=== PATIENT | female | born 1970 | race Caucasian/White ===

== ENCOUNTER 2017-07-23 18:00 | Inpatient (IN) | payer MEDICAID ==
[2017-07-23] MEDS ORDERED: Sodium Chloride 0.9% 1,000 ML IV ONE ×2 (18:27→19:53)
[2017-07-23 19:20] LABS: BASO # 0.3 K/uL (0.0-0.2); BASO % 2.2 % (0.0-2.0); EOS # 0.4 K/uL (0.0-0.7); EOS % 2.8 % (0.0-4.0); HEMOGLOBIN 14.1 g/dL (11.0-16.0); LYMPH # 1.8 K/uL (1.0-4.3); LYMPH % 11.6 % (20.0-40.0); MEAN CELL VOLUME 95.5 fL (81.0-99.0); MEAN CORPUSCULAR HGB CONC 34.5 g/dL (33.0-37.0); MEAN PLATELET VOLUME 10.1 fL (7.2-11.7); MONO # 0.8 K/uL (0.0-0.8); NEUT # 12.5 K/uL (1.8-7.0); NEUT % 78.4 % (50.0-75.0); RBC 4.27 Mil/uL (3.80-5.20); RED CELL DISTRIBUTION WIDTH 12.7 % (11.5-14.5); WHITE BLOOD COUNT 15.9 K/uL (4.8-10.8)
[2017-07-23 19:32] LABS: ACETAMINOPHEN < 10.0 ug/mL (10.0-30.0); SALICYLATE < 1.0 mg/dL 1
[2017-07-23 19:49] LABS: ALB/GLOB RATIO 1.1 (1.0-2.1); ALT/SGPT 25 U/L (9-52); AST/SGOT 17 U/L (14-36); BLOOD UREA NITROGEN 22 mg/dL (7-17); CALCIUM 9.5 mg/dl (8.6-10.4); GFR AFRICAN-AMERICAN > 60; GFR NON-AFRICAN AMERICAN 53; MAGNESIUM 1.9 mg/dL (1.6-2.3)
[2017-07-23] MEDS ORDERED: Sodium Chloride 0.9% 1,000 ML ONE (20:04)
[2017-07-23 20:11] LABS: HCG,QUALITATIVE URINE NEGATIVE (NEGATIVE)
[2017-07-23 20:16] LABS: URINE BACTERIA RARE (<OCC); URINE BILIRUBIN NEGATIVE (NEGATIVE); URINE BLOOD 1+ (NEGATIVE); URINE CLARITY Clear (Clear); URINE COLOR Straw (YELLOW); URINE GLUCOSE (UA) 3+ mg/dL (Normal); URINE LEUKOCYTE ESTERASE NEG Leu/uL (Negative); URINE NITRATE NEGATIVE (NEGATIVE); URINE PROTEIN 2+ mg/dL (NEGATIVE); URINE UROBILINOGEN NORMAL mg/dL (0.2-1.0)
[2017-07-23 20:21] LABS: SQUAMOUS EPITHIAL 1 /hpf (0-5)
[2017-07-23 20:22] LABS: BENZODIAZEPINES, UR NEGATIVE (NEGATIVE); OPIATES, UR NEGATIVE (NEGATIVE); PHENCYCLIDINE, UR NEGATIVE (NEGATIVE)
[2017-07-23 20:27] LABS: BARBITURATES, UR POSITIVE (NEGATIVE)
[2017-07-23] MEDS ORDERED: Magnesium Citrate Oral SOL (300 ml) PO PRN (21:25)
[2017-07-23] MEDS ORDERED: Multivitamin (MVI) 10 ML, Thiamine 100 MG, Folic Acid 1 MG in Sodium Chloride 0.9% 1,00... IV ONE (21:27)
--- NOTE | 2017-07-23 21:30 | C.PDOC ---
Time Seen by Provider: 07/23/17 18:10 Chief Complaint (Nursing): Psychiatric Evaluation History Per: Patient, EMS History/Exam Limitations: clinical condition Onset/Duration Of Symptoms: Hrs (since 2 pm today) Current Symptoms Are (Timing): Still Present Suicide/Self Injury Attempted (Context): Ingestion Ingestion Of Substance: 90 tabs on 32.4mg Phenobarbital Modifying Factor(s): Alcohol, Marijuana Severity: Moderate Associated Symptoms: Depression, Suicidal Thoughts Additional History Per: Prior Records Past Medical History Reviewed: Historical Data, Nursing Documentation, Vital Signs Vital Signs: Last Vital Signs Temp 98 F 07/23/17 18:07 Pulse 99 H 07/23/17 19:30 Resp 16 07/23/17 19:30 BP 143/83 07/23/17 19:30 Pulse Ox 97 07/23/17 19:30 - Medical History PMH: Bipolar Disorder, Depression, Diabetes, HTN, Seizures Family History: States: Unknown Family Hx - Social History Hx Alcohol Use: Yes Hx Substance Use: Yes - Immunization History Hx Tetanus Toxoid Vaccination: No Hx Influenza Vaccination: No Hx Pneumococcal Vaccination: No Review Of Systems Review Of Systems: ROS cannot be obtained secondary to pt's inabilty to answer questions. Physical Exam - Physical Exam Appears: Other (Drowsy. Tearfull.) Skin: Normal Color, Warm, Dry Head: Atraumatic, Normacephalic Eye(s): bilateral: PERRL Neck: Normal ROM, Supple Cardiovascular: Rhythm Regular Respiratory: Normal Breath Sounds, No Accessory Muscle Use Gastrointestinal/Abdominal: Soft, No Tenderness Extremity: Normal ROM Neurological/Psych: Oriented x3, Eyes Open With Command, Slow To Respond With Command, Other (Moving all extremities) Gait: Unable To Assess ED Course And Treatment - Laboratory Results Result Diagrams: 07/23/17 19:13 07/23/17 19:15 Lab Interpretation: Abnormal Interpretation Of Abnormal: Hyperglycemia. ECG: Interpreted By Me, Viewed By Me ECG Rhythm: Sinus Tachycardia, Nonspecific Changes Rate From EC O2 Sat by Pulse Oximetry: 97 Pulse Ox Interpretation: Normal - Radiology CXR: Interpreted by Me, Viewed By Me CXR Interpretation: Yes: No Acute Disease Progress Note: Pt d/w Eliezer at [facility]. They recommended supportive care and observation. - Physician Consult Information Physician Contacted: Denzel Roth (ICU) Outcome Of Conversation: She accepted pt to ICU. Progress - Interventions Interventions:: Observation, Intravenous fluid - Data Reviewed Data Reviewed: Lab, Diagnostic imaging, EKG, Old records - Patient Status Patient status: Unchanged - Critical Care Citical Care: Excluding Proc Time Critical Care Time: 60 minutes - Continuity of Care Discussed patient case with:: Patient, ED Nurse, On-call PMD-pt unassigned Discussed pt. case with insolvency consultant/specialty: Pulmonary/Crit. Care - Patient Plan Patient Plan: Admission, ICU Disposition Discussed With : Tico Oconnell Comment: He accepted pt on his service. Doctor Will See Patient In The: Hospital Counseled Patient/Family Regarding: Studies Performed, Diagnosis - Disposition Disposition: HOSPITALIZED Disposition Time: 21:32 Condition: GUARDED - Clinical Impression Clinical Impression: Intentional phenobarbital overdose
[2017-07-23] MEDS ORDERED: (Novolin R) Insulin Human Regular 100 units/ml vial SC SCH (22:00)
--- NOTE | 2017-07-23 22:25 | CP.PCM.CON ---
History of Present Illness - History of Present Illness History of Present Illness: 47 y/o female with Bipolar Disorder, Depression, Diabetes, HTN, Seizures brought to ER after ingestion of 90 tabs of 32.4mg Phenobarbital.She also took ( s): Alcohol, Marijuana.pt drowsy but arousable.Poison control called by ER and recommended observation. patient very drowsy unable to get history,ROS Past Patient History - Past Social History Smoking Status: Heavy Smoker > 10 Cigarettes Daily - CARDIAC Hx Hypertension: Yes - NEUROLOGICAL Hx Seizures: Yes - ENDOCRINE/METABOLIC Hx Endocrine Disorders: Yes Hx Diabetes Mellitus Type 1: Yes - PSYCHIATRIC Hx Bipolar Disorder: Yes Hx Depression: Yes Hx Substance Use: Yes - SURGICAL HISTORY Hx Surgeries: Yes (SEE COMMENT) Other/Comment: VULVAR ABSCESS SX 03/02/16,. BURN GRAFTS - ANESTHESIA Hx Anesthesia: Yes Hx Anesthesia Reactions: No Meds Allergies/Adverse Reactions: Allergies Allergy/AdvReac Type Severity Reaction Status Date / Time latex AdvReac RASH Verified 07/23/17 18:17 - Medications Medications: Current Medications Docusate Sodium (Colace) 100 mg PO BID DENNIS Enoxaparin Sodium (Lovenox) 40 mg SC DAILY DENNIS Multivitamins/Vitamin C 10 ml/Thiamine HCl 100 mg/ Folic Acid 1 mg/ Sodium Chloride 1,011.2 mls @ 100 mls/hr IV .[id number] ONE Stop: 07/24/17 07:33 Insulin Human Regular (Novolin R) 0 unit SC ACHS DENNIS PRN Reason: Protocol Magnesium Citrate (Citrate Of Mag) 300 ml PO ONCE PRN PRN Reason: Constipation Physical Exam - Constitutional Appears: No Acute Distress Additional comments: very drowsy but arousable - Head Exam Head Exam: ATRAUMATIC, NORMAL INSPECTION, NORMOCEPHALIC - Eye Exam Eye Exam: Normal appearance, PERRL. absent: Conjunctival injection, Periorbital swelling - ENT Exam ENT Exam: Mucous Membranes Moist - Neck Exam Neck exam: Positive for: Normal Inspection - Respiratory Exam Respiratory Exam: Clear to Auscultation Bilateral, NORMAL BREATHING PATTERN - Cardiovascular Exam Cardiovascular Exam: REGULAR RHYTHM - GI/Abdominal Exam GI & Abdominal Exam: Normal Bowel Sounds, Soft. absent: Tenderness - Extremities Exam Extremities exam: Positive for: normal inspection. Negative for: pedal edema, tenderness - Neurological Exam Neurological exam: Altered - Skin Skin Exam: Normal Color, Warm Results - Vital Signs Recent Vital Signs: Last Vital Signs Temp 98 F 07/23/17 18:07 Pulse 99 H 07/23/17 19:30 Resp 16 07/23/17 19:30 BP 143/83 07/23/17 19:30 Pulse Ox 97 07/23/17 21:33 - Labs Result Diagrams: 07/23/17 19:13 07/23/17 19:15 Labs: Laboratory Results - last 24 hr 07/23/17 07/23/17 07/23/17 18:14 19:13 19:15 WBC 15.9 H RBC 4.27 Hgb 14.1 Hct 40.8 MCV 95.5 MCH 33.0 H MCHC 34.5 RDW 12.7 Plt Count 249 MPV 10.1 Neut % (Auto) 78.4 H Lymph % (Auto) 11.6 L [place] % (Auto) 5.0 Eos % (Auto) 2.8 Baso % (Auto) 2.2 H Neut # (Auto) 12.5 H Lymph # (Auto) 1.8 [place] # (Auto) 0.8 Eos # (Auto) 0.4 Baso # (Auto) 0.3 H Sodium 132 Potassium 3.9 Chloride 94 L Carbon Dioxide 25 Anion Gap 17 BUN 22 H Creatinine 1.1 Est GFR ( Amer) > 60 Est GFR (Non-Af Amer) 53 POC Glucose (mg/dL) 405 H* Random Glucose 422 H* D Calcium 9.5 Magnesium 1.9 Total Bilirubin 0.4 AST 17 ALT 25 Alkaline Phosphatase 87 Total Protein 7.8 Albumin 4.0 Globulin 3.8 Albumin/Globulin Ratio 1.1 Urine Color Urine Clarity Urine pH Ur Specific [place] Urine Protein Urine Glucose (UA) Urine Ketones Urine Blood Urine Nitrate Urine Bilirubin Urine Urobilinogen Ur Leukocyte Esterase Urine RBC (Auto) Ur Squamous Epith Cells Urine Bacteria Urine HCG, Qual Salicylates Urine Opiates Screen Urine Methadone Screen Acetaminophen Ur Barbiturates Screen Ur Phencyclidine Scrn Ur Amphetamines Screen U Benzodiazepines Scrn U Oth Cocaine Metabols U Cannabinoids Screen Alcohol, Quantitative 83 H 07/23/17 07/23/17 07/23/17 19:15 20:00 20:00 WBC RBC Hgb Hct MCV MCH MCHC RDW Plt Count MPV Neut % (Auto) Lymph % (Auto) [place] % (Auto) Eos % (Auto) Baso % (Auto) Neut # (Auto) Lymph # (Auto) [place] # (Auto) Eos # (Auto) Baso # (Auto) Sodium Potassium Chloride Carbon Dioxide Anion Gap BUN Creatinine Est GFR ( Amer) Est GFR (Non-Af Amer) POC Glucose (mg/dL) Random Glucose Calcium Magnesium Total Bilirubin AST ALT Alkaline Phosphatase Total Protein Albumin Globulin Albumin/Globulin Ratio Urine Color Straw Urine Clarity Clear Urine pH 6.0 Ur Specific [place] 1.010 Urine Protein 2+ H Urine Glucose (UA) 3+ H Urine Ketones Negative Urine Blood 1+ H Urine Nitrate Negative Urine Bilirubin Negative Urine Urobilinogen Normal Ur Leukocyte Esterase Neg Urine RBC (Auto) 1 Ur Squamous Epith Cells 1 Urine Bacteria Rare Urine HCG, Qual Negative Salicylates < 1.0 Urine Opiates Screen Negative Urine Methadone Screen Negative Acetaminophen < 10.0 L Ur Barbiturates Screen Positive H Ur Phencyclidine Scrn Negative Ur Amphetamines Screen Negative U Benzodiazepines Scrn Negative U Oth Cocaine Metabols Negative U Cannabinoids Screen Positive H Alcohol, Quantitative 07/23/17 22:23 WBC RBC Hgb Hct MCV MCH MCHC RDW Plt Count MPV Neut % (Auto) Lymph % (Auto) [place] % (Auto) Eos % (Auto) Baso % (Auto) Neut # (Auto) Lymph # (Auto) [place] # (Auto) Eos # (Auto) Baso # (Auto) Sodium Potassium Chloride Carbon Dioxide Anion Gap BUN Creatinine Est GFR ( Amer) Est GFR (Non-Af Amer) POC Glucose (mg/dL) 230 H Random Glucose Calcium Magnesium Total Bilirubin AST ALT Alkaline Phosphatase Total Protein Albumin Globulin Albumin/Globulin Ratio Urine Color Urine Clarity Urine pH Ur Specific [place] Urine Protein Urine Glucose (UA) Urine Ketones Urine Blood Urine Nitrate Urine Bilirubin Urine Urobilinogen Ur Leukocyte Esterase Urine RBC (Auto) Ur Squamous Epith Cells Urine Bacteria Urine HCG, Qual Salicylates Urine Opiates Screen Urine Methadone Screen Acetaminophen Ur Barbiturates Screen Ur Phencyclidine Scrn Ur Amphetamines Screen U Benzodiazepines Scrn U Oth Cocaine Metabols U Cannabinoids Screen Alcohol, Quantitative - EKG Data EKG Interpreted by: Myself EKG shows normal: Sinus rhythm Rate: Tachycardia Assessment & Plan - Assessment and Plan (Free Text) Assessment: 1.Phenobarbiturate overdose-Patient drowsy but arousable close observation as recommended by Poison contril 2.DM with elevated glucose IV fluids and insulin coverake 3.H/O HTN f/u BP 4.Bipolar disorder Psych evaluation 5.Hematuria-rpt UA
[2017-07-23] MEDS ORDERED: (Novolin R) Insulin Human Regular 100 units/ml vial ONE (22:44)
[2017-07-23 22:45] LABS: ABG ALLEN TEST PO; ARTERIAL BLOOD GAS HCO3 23.2 mmol/L (21-28); ARTERIAL BLOOD GAS HEMOGLOBIN 12.3 g/dL (11.7-17.4); ARTERIAL BLOOD GAS O2 SAT 98.2 % (95-98); ARTERIAL BLOOD GAS PCO2 40 mm/Hg (35-45); ARTERIAL BLOOD GAS PH 7.37 (7.35-7.45); ARTERIAL BLOOD GAS PO2 86 mm/Hg (80-100); ARTERIAL BLOOD GAS TCO2 24.3 mmol/L (22-28)
[2017-07-23] MEDS: Sodium Chloride 0.45% 1,000 ML IV SCH (23:04)
--- NOTE | 2017-07-23 23:56 | CP.PCM.HP ---
History of Present Illness - History of Present Illness History of Present Illness: CC: Drug over dose, suicidal attempt History of Present Illness: 47 y/o female with Bipolar Disorder, Depression, Diabetes, HTN, Seizures complaint with diet and medications brought to ER after ingestion of 90 tabs of 32.4mg Phenobarbital in attempt to commit suiciide, .She also took Alcohol, Marijuana.pt drowsy but arousable.Poison control called by ER and recommended observation. patient very drowsy unable to get history,ROS Present on Admission - Present on Admission Any Indicators Present on Admission: Yes Review of Systems - Review of Systems Systems not reviewed;Unavailable: Acuity of Condition - Constitutional Constitutional: Fatigue, Lethargy - EENT Nose/Mouth/Throat: absent: As Per HPI, Epistaxis, Nasal Congestion, Nasal Discharge, Nasal Obstruction, Nasal Trauma, Nose Pain, Post Nasal Drip, Sinus Pain, Sinus Pressure, Bleeding Gums, Change in Voice, Dental Pain, Dry Mouth, Dysphagia, Halitosis, Hoarsness, Lip Swelling, Mouth Lesions, Mouth Pain, Odynophagia, Sore Throat, Throat Swelling, Tongue Swelling, Facial Pain, Neck Pain, Neck Mass, Other - Cardiovascular Cardiovascular: absent: As Per HPI, Acrocyanosis, Chest Pain, Chest Pain at Rest , Chest Pain with Activity, Claudication, Diaphoresis, Dyspnea, Dyspnea on Exertion, Edema, Irregular Heart Rhythm, Pain Radiating to Arm/Neck/Jaw, Leg Edema, Leg Ulcers, Lightheadedness, Orthopnea, Palpitations, Paroxysmal Nocturnal Dyspnea, Pedal Edema, Radiating Pain, Rapid Heart Rate, Slow Heart Rate, Syncope, Other - Respiratory Respiratory: absent: As Per HPI, Cough, Dyspnea, Hemoptysis, Dyspnea on Exertion , Wheezing, Snoring, Stridor, Pain on Inspiration, Chest Congestion, Excessive Mucous Production, Change in Mucous Color, Pain with Coughing, Other - Gastrointestinal Gastrointestinal: absent: As Per HPI, Abdominal Pain, Belching, Bloating, Change in Bowel Habits, Change in Stool Character, Coffee Ground Emesis, Constipation, Cramping, Diarrhea, Dyspepsia, Dysphagia, Early Satiety, Excessive Flatus, Fecal Incontinence, Heartburn, Hematemesis, Hematochezia, Loose Stools, Melena, Nausea, Odynophagia, Temesmus, Vomiting, Other - Genitourinary Genitourinary: absent: As Per HPI, Change in Urinary Stream, Difficulty Urinating, Dysuria, Flank Pain, Hematuria, Pyuria, Nocturia, Urinary Incontinence, Urinary Frequency, Urinary Hesitance, Urinary Urgency, Voiding Freq/Small Amts, Freq UTI, Hx Renal/Bladder Calculi, Hx /Renal Surgery, Bladder Distension, Other - Neurological Neurological: absent: As Per HPI, Abnormal Gait, Abnormal Hearing, Abnormal Movements, Abnormal Speech, Behavioral Changes, Burning Sensations, Confusion, Convulsions, Disequilibrium, Dizziness, Numbness, Focal Weakness, Frequent Falls , Headaches, Lack of Coordination, Loss of Vision, Memory Loss, Paresthesias, Radicular Pain, Restless Legs, Sensory Deficit, Syncope, Tingling, Tremor, Vertigo, Weakness, Other Visual Disturbances, Other - Psychiatric Psychiatric: Anxiety, Behavioral Changes, Depression, Suicidal Ideation - Endocrine Endocrine: absent: As Per HPI, Change in Body Appearance, Change in Libido, Cold Intolorance, Deepening of Voice, Excessive Sweating, Fatigue, Flushing, Heat Intolorance, Increase in Ring/Shoe/Hat Size, Palpitations, Polydipsia, Polyphagia, Polyuria, Other Past Patient History - Past Social History Smoking Status: Heavy Smoker > 10 Cigarettes Daily - CARDIAC Hx Hypertension: Yes - NEUROLOGICAL Hx Seizures: Yes - ENDOCRINE/METABOLIC Hx Endocrine Disorders: Yes Hx Diabetes Mellitus Type 1: Yes - PSYCHIATRIC Hx Bipolar Disorder: Yes Hx Depression: Yes Hx Substance Use: Yes - SURGICAL HISTORY Hx Surgeries: Yes (SEE COMMENT) Other/Comment: VULVAR ABSCESS SX 03/02/16,. BURN GRAFTS - ANESTHESIA Hx Anesthesia: Yes Hx Anesthesia Reactions: No Meds Allergies/Adverse Reactions: Allergies Allergy/AdvReac Type Severity Reaction Status Date / Time latex AdvReac RASH Verified 07/23/17 18:17 Physical Exam - Constitutional Appears: No Acute Distress - Head Exam Head Exam: ATRAUMATIC, NORMAL INSPECTION, NORMOCEPHALIC - Eye Exam Eye Exam: EOMI, Normal appearance, PERRL Pupil Exam: NORMAL ACCOMODATION, PERRL - Respiratory Exam Respiratory Exam: Clear to Auscultation Bilateral, NORMAL BREATHING PATTERN - Cardiovascular Exam Cardiovascular Exam: REGULAR RHYTHM - GI/Abdominal Exam GI & Abdominal Exam: Normal Bowel Sounds, Soft. absent: Tenderness Results - Vital Signs Recent Vital Signs: Last Vital Signs Temp 98 F 07/23/17 18:07 Pulse 81 07/23/17 22:44 Resp 20 07/23/17 22:44 BP 134/78 07/23/17 22:44 Pulse Ox 99 07/23/17 23:26 - Labs Result Diagrams: 07/24/17 06:24 07/24/17 06:23 Labs: Laboratory Results - last 24 hr 07/23/17 07/23/17 07/23/17 18:14 19:13 19:15 WBC 15.9 H RBC 4.27 Hgb 14.1 Hct 40.8 MCV 95.5 MCH 33.0 H MCHC 34.5 RDW 12.7 Plt Count 249 MPV 10.1 Neut % (Auto) 78.4 H Lymph % (Auto) 11.6 L [place] % (Auto) 5.0 Eos % (Auto) 2.8 Baso % (Auto) 2.2 H Neut # (Auto) 12.5 H Lymph # (Auto) 1.8 [place] # (Auto) 0.8 Eos # (Auto) 0.4 Baso # (Auto) 0.3 H Puncture Site pCO2 pO2 HCO3 ABG pH ABG Total CO2 ABG O2 Saturation ABG Base Excess ABG Hemoglobin ABG Carboxyhemoglobin POC ABG HHb (Measured) ABG Methemoglobin Isaías Test A-a O2 Difference Respiratory Index Hgb O2 Saturation FiO2 Sodium 132 Potassium 3.9 Chloride 94 L Carbon Dioxide 25 Anion Gap 17 BUN 22 H Creatinine 1.1 Est GFR ( Amer) > 60 Est GFR (Non-Af Amer) 53 POC Glucose (mg/dL) 405 H* Random Glucose 422 H* D Calcium 9.5 Magnesium 1.9 Total Bilirubin 0.4 AST 17 ALT 25 Alkaline Phosphatase 87 Total Protein 7.8 Albumin 4.0 Globulin 3.8 Albumin/Globulin Ratio 1.1 Urine Color Urine Clarity Urine pH Ur Specific [place] Urine Protein Urine Glucose (UA) Urine Ketones Urine Blood Urine Nitrate Urine Bilirubin Urine Urobilinogen Ur Leukocyte Esterase Urine RBC (Auto) Ur Squamous Epith Cells Urine Bacteria Urine HCG, Qual Salicylates Urine Opiates Screen Urine Methadone Screen Acetaminophen Ur Barbiturates Screen Ur Phencyclidine Scrn Ur Amphetamines Screen U Benzodiazepines Scrn U Oth Cocaine Metabols U Cannabinoids Screen Alcohol, Quantitative 83 H 07/23/17 07/23/17 07/23/17 19:15 20:00 20:00 WBC RBC Hgb Hct MCV MCH MCHC RDW Plt Count MPV Neut % (Auto) Lymph % (Auto) [place] % (Auto) Eos % (Auto) Baso % (Auto) Neut # (Auto) Lymph # (Auto) [place] # (Auto) Eos # (Auto) Baso # (Auto) Puncture Site pCO2 pO2 HCO3 ABG pH ABG Total CO2 ABG O2 Saturation ABG Base Excess ABG Hemoglobin ABG Carboxyhemoglobin POC ABG HHb (Measured) ABG Methemoglobin Isaías Test A-a O2 Difference Respiratory Index Hgb O2 Saturation FiO2 Sodium Potassium Chloride Carbon Dioxide Anion Gap BUN Creatinine Est GFR ( Amer) Est GFR (Non-Af Amer) POC Glucose (mg/dL) Random Glucose Calcium Magnesium Total Bilirubin AST ALT Alkaline Phosphatase Total Protein Albumin Globulin Albumin/Globulin Ratio Urine Color Straw Urine Clarity Clear Urine pH 6.0 Ur Specific [place] 1.010 Urine Protein 2+ H Urine Glucose (UA) 3+ H Urine Ketones Negative Urine Blood 1+ H Urine Nitrate Negative Urine Bilirubin Negative Urine Urobilinogen Normal Ur Leukocyte Esterase Neg Urine RBC (Auto) 1 Ur Squamous Epith Cells 1 Urine Bacteria Rare Urine HCG, Qual Negative Salicylates < 1.0 Urine Opiates Screen Negative Urine Methadone Screen Negative Acetaminophen < 10.0 L Ur Barbiturates Screen Positive H Ur Phencyclidine Scrn Negative Ur Amphetamines Screen Negative U Benzodiazepines Scrn Negative U Oth Cocaine Metabols Negative U Cannabinoids Screen Positive H Alcohol, Quantitative 07/23/17 07/23/17 22:23 22:41 WBC RBC Hgb Hct MCV MCH MCHC RDW Plt Count MPV Neut % (Auto) Lymph % (Auto) [place] % (Auto) Eos % (Auto) Baso % (Auto) Neut # (Auto) Lymph # (Auto) [place] # (Auto) Eos # (Auto) Baso # (Auto) Puncture Site Rr pCO2 40 pO2 86 HCO3 23.2 ABG pH 7.37 ABG Total CO2 24.3 ABG O2 Saturation 98.2 H ABG Base Excess -2.0 ABG Hemoglobin 12.3 ABG Carboxyhemoglobin 4.7 H POC ABG HHb (Measured) 1.7 ABG Methemoglobin 1.5 Isaías Test Po A-a O2 Difference 14.0 Respiratory Index 0.2 Hgb O2 Saturation 92.2 L FiO2 21.0 Sodium Potassium Chloride Carbon Dioxide Anion Gap BUN Creatinine Est GFR ( Amer) Est GFR (Non-Af Amer) POC Glucose (mg/dL) 230 H Random Glucose Calcium Magnesium Total Bilirubin AST ALT Alkaline Phosphatase Total Protein Albumin Globulin Albumin/Globulin Ratio Urine Color Urine Clarity Urine pH Ur Specific [place] Urine Protein Urine Glucose (UA) Urine Ketones Urine Blood Urine Nitrate Urine Bilirubin Urine Urobilinogen Ur Leukocyte Esterase Urine RBC (Auto) Ur Squamous Epith Cells Urine Bacteria Urine HCG, Qual Salicylates Urine Opiates Screen Urine Methadone Screen Acetaminophen Ur Barbiturates Screen Ur Phencyclidine Scrn Ur Amphetamines Screen U Benzodiazepines Scrn U Oth Cocaine Metabols U Cannabinoids Screen Alcohol, Quantitative Assessment & Plan (1) Suicide attempt Status: Acute (2) Intentional phenobarbital overdose Status: Acute
[2017-07-24] MEDS: (Novolin R) Insulin Human Regular 100 units/ml vial SC SCH ×6 (00:15→21:27)
[2017-07-24] MEDS: Sodium Chloride 0.45% 1,000 ML IV SCH ×3 (05:30→19:22)
[2017-07-24 05:48] LABS: ABG ALLEN TEST POS; ARTERIAL BLOOD GAS HEMOGLOBIN 11.9 g/dL (11.7-17.4); ARTERIAL BLOOD GAS O2 SAT 98.2 % (95-98); ARTERIAL BLOOD GAS PCO2 38 mm/Hg (35-45); ARTERIAL BLOOD GAS PO2 95 mm/Hg (80-100); ARTERIAL BLOOD GAS TCO2 24.7 mmol/L (22-28)
[2017-07-24 06:29] LABS: BASO # 0.1 K/uL (0.0-0.2); BASO % 0.8 % (0.0-2.0); EOS # 0.9 K/uL (0.0-0.7); EOS % 5.5 % (0.0-4.0); LYMPH % 25.6 % (20.0-40.0); MEAN CELL VOLUME 94.9 fL (81.0-99.0); MEAN CORPUSCULAR HEMOGLOBIN 33.1 pg (27.0-31.0); MEAN CORPUSCULAR HGB CONC 34.9 g/dL (33.0-37.0); MEAN PLATELET VOLUME 9.9 fL (7.2-11.7); MONO % 6.7 % (0.0-10.0); NEUT # 9.6 K/uL (1.8-7.0); NEUT % 61.4 % (50.0-75.0); RBC 3.62 Mil/uL (3.80-5.20); RED CELL DISTRIBUTION WIDTH 12.7 % (11.5-14.5); WHITE BLOOD COUNT 15.6 K/uL (4.8-10.8)
[2017-07-24 06:36] LABS: SQUAMOUS EPITHIAL 13 /hpf (0-5); URINE BACTERIA RARE (<OCC); URINE BILIRUBIN NEGATIVE (NEGATIVE); URINE BLOOD NEGATIVE (NEGATIVE); URINE CLARITY Hazy (Clear); URINE COLOR Yellow (YELLOW); URINE GLUCOSE (UA) 3+ mg/dL (Normal); URINE LEUKOCYTE ESTERASE NEG Leu/uL (Negative); URINE NITRATE NEGATIVE (NEGATIVE); URINE PROTEIN 3+ mg/dL (NEGATIVE); URINE UROBILINOGEN NORMAL mg/dL (0.2-1.0)
[2017-07-24 06:45] LABS: ALB/GLOB RATIO 0.9 (1.0-2.1); ALBUMIN 2.8 g/dL (3.5-5.0); ALT/SGPT 20 U/L (9-52); AST/SGOT 14 U/L (14-36); BLOOD UREA NITROGEN 16 mg/dL (7-17); CALCIUM 7.4 mg/dl (8.6-10.4); GFR AFRICAN-AMERICAN > 60; GFR NON-AFRICAN AMERICAN > 60; MAGNESIUM 1.6 mg/dL (1.6-2.3)
--- NOTE | 2017-07-24 10:18 | RAD ---
HISTORY: Overdosed COMPARISON: Chest x-ray performed 07/10/12 TECHNIQUE: Chest, one view. FINDINGS: Examination limited by habitus. LUNGS: No focal consolidation. Please note that chest x-ray has limited sensitivity for the detection of pulmonary masses. PLEURA: No significant pleural effusion identified. No definite pneumothorax . CARDIOVASCULAR: Heart size appears within normal limits. OSSEOUS STRUCTURES: No acute osseous abnormality identified. VISUALIZED UPPER ABDOMEN: Unremarkable. OTHER FINDINGS: None. IMPRESSION: No focal consolidation identified.
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
[2017-07-24] MEDS: Buprenorphine Hydrochloride 2 mg SL SCH (11:00)
[2017-07-24] MEDS: Enoxaparin 40 mg Syringe SC SCH (11:00)
--- NOTE | 2017-07-24 11:26 | CP.CCUPN ---
<Jose Cruz Benitez R - Last Filed: 07/24/17 11:32> CCU Subjective - Physician Review Subjective (Free Text): Patient seen and examined. Patient extremely agitated this morning - patient wanted to leave AMA, ripped out her IV, [facility] was called and psychiatrist was called down who saw patient and convinced patient to stay 1 more day. CCU Objective - Vital Signs / Intake & Output Vital Signs (Last 4 hours): Vital Signs Temp Pulse Resp BP Pulse Ox 07/24/17 09:03 87 14 127/75 99 07/24/17 08:03 83 13 128/83 100 07/24/17 08:00 98.7 F Intake and Output (Last 8hrs): Intake & Output 07/23/17 07/24/17 07/24/17 22:59 06:59 14:59 Intake Total 1400 500 Output Total 100 Balance 1300 500 Weight 162 lb 199 lb 4.766 oz Intake: Intake, IV Amount 1400 500 Left Antecubital 700 200 Left Distal Port 700 300 Antecubital Output: Urine 100 Urine, Voided 100 Other: Voiding Method Bedpan # Voids Urine, Voided 1 - Medications Active Medications: Active Medications Generic Name Dose Route Start Last Admin Trade Name Freq PRN Reason Stop Dose Admin Buprenorphine HCl 4 mg 07/24/17 11:00 07/24/17 11:00 Subutex SL 4 mg DAILY DENNIS Administration Clonazepam 1 mg 07/24/17 14:00 Klonopin PO TID DENNIS Docusate Sodium 100 mg 07/24/17 10:00 07/24/17 11:00 Colace PO 100 mg BID DENNIS Administration Enoxaparin Sodium 40 mg 07/24/17 10:00 07/24/17 11:00 Lovenox SC 40 mg DAILY DENNIS Administration Sodium Chloride 1,000 mls @ 100 mls/hr 07/23/17 22:45 07/24/17 07:48 Sodium Chloride 0.45% IV Not Given .Q10H [facility] Insulin Human Regular 0 unit 07/24/17 00:00 07/24/17 08:28 Novolin R SC 1 unit Q4 DENNIS Administration Protocol Magnesium Citrate 300 ml 07/23/17 21:25 Citrate Of Mag PO ONCE PRN Constipation Pantoprazole Sodium 40 mg 07/24/17 10:00 Protonix Inj IVP DAILY DENNIS Pneumococcal Polyvalent Vaccine 0.5 ml 02/16/18 10:00 Pneumovax 23 Vaccine IM 07/26/17 10:01 .ONCE ONE Quetiapine Fumarate 300 mg 07/24/17 22:00 Seroquel PO HS DENNIS - Patient Studies Lab Studies: Lab Studies 07/24/17 07/24/17 07/24/17 Range/Units 08:22 06:24 06:24 WBC 15.6 H (4.8-10.8) K/uL RBC 3.62 L (3.80-5.20) Mil/uL Hgb 12.0 D (11.0-16.0) g/dL Hct 34.3 (34.0-47.0) % MCV 94.9 (81.0-99.0) fL MCH 33.1 H (27.0-31.0) pg MCHC 34.9 (33.0-37.0) g/dL RDW 12.7 (11.5-14.5) % Plt Count 203 (130-400) K/uL MPV 9.9 (7.2-11.7) fL Neut % (Auto) 61.4 (50.0-75.0) % Lymph % (Auto) 25.6 (20.0-40.0) % [place] % (Auto) 6.7 (0.0-10.0) % Eos % (Auto) 5.5 H (0.0-4.0) % Baso % (Auto) 0.8 (0.0-2.0) % Neut # (Auto) 9.6 H (1.8-7.0) K/uL Lymph # (Auto) 4.0 (1.0-4.3) K/uL [place] # (Auto) 1.0 H (0.0-0.8) K/uL Eos # (Auto) 0.9 H (0.0-0.7) K/uL Baso # (Auto) 0.1 (0.0-0.2) K/uL Puncture Site pCO2 (35-45) mm/Hg pO2 (80-100) mm/Hg HCO3 (21-28) mmol/L ABG pH (7.35-7.45) ABG Total CO2 (22-28) mmol/L ABG O2 Saturation (95-98) % ABG Base Excess (-2.0-3.0) mmol/L ABG Hemoglobin (11.7-17.4) g/dL ABG Carboxyhemoglobin (0.5-1.5) % POC ABG HHb (Measured) (0.0-5.0) % ABG Methemoglobin (0.0-3.0) % Isaías Test A-a O2 Difference mm/Hg Respiratory Index Hgb O2 Saturation (95.0-98.0) % FiO2 % Sodium (132-148) mmol/L Potassium (3.6-5.2) mmol/L Chloride (98-107) mmol/L Carbon Dioxide (22-30) mmol/L Anion Gap (10-20) BUN (7-17) mg/dL Creatinine (0.7-1.2) mg/dL Est GFR ( Amer) Est GFR (Non-Af Amer) POC Glucose (mg/dL) 175 H (65-110) mg/dL Random Glucose (65-105) mg/dL Calcium (8.6-10.4) mg/dl Phosphorus (2.5-4.5) mg/dL Magnesium (1.6-2.3) mg/dL Total Bilirubin (0.2-1.3) mg/dL AST (14-36) U/L ALT (9-52) U/L Alkaline Phosphatase (38-126) U/L Total Protein (6.3-8.3) g/dL Albumin (3.5-5.0) g/dL Globulin (2.2-3.9) gm/dL Albumin/Globulin Ratio (1.0-2.1) Urine Color Yellow (YELLOW) Urine Clarity Hazy (Clear) Urine pH 6.0 (5.0-8.0) Ur Specific [place] 1.014 (1.003-1.030) Urine Protein 3+ H (NEGATIVE) mg/dL Urine Glucose (UA) 3+ H (Normal) mg/dL Urine Ketones Negative (NEGATIVE) mg/dL Urine Blood Negative (NEGATIVE) Urine Nitrate Negative (NEGATIVE) Urine Bilirubin Negative (NEGATIVE) Urine Urobilinogen Normal (0.2-1.0) mg/dL Ur Leukocyte Esterase Neg (Negative) Zach/uL Urine WBC (Auto) 1 (0-5) /hpf Urine RBC (Auto) 1 (0-3) /hpf Ur Squamous Epith Cells 13 H (0-5) /hpf Urine Bacteria Rare (<OCC) Urine HCG, Qual (NEGATIVE) Salicylates mg/dL 1 Urine Opiates Screen (NEGATIVE) Urine Methadone Screen (NEGATIVE) Acetaminophen (10.0-30.0) ug/mL Ur Barbiturates Screen (NEGATIVE) Ur Phencyclidine Scrn (NEGATIVE) Ur Amphetamines Screen (NEGATIVE) U Benzodiazepines Scrn (NEGATIVE) U Oth Cocaine Metabols (NEGATIVE) U Cannabinoids Screen (NEGATIVE) Alcohol, Quantitative (0-10) mg/dl 07/24/17 07/24/17 07/24/17 Range/Units 06:23 05:10 03:51 WBC (4.8-10.8) K/uL RBC (3.80-5.20) Mil/uL Hgb (11.0-16.0) g/dL Hct (34.0-47.0) % MCV (81.0-99.0) fL MCH (27.0-31.0) pg MCHC (33.0-37.0) g/dL RDW (11.5-14.5) % Plt Count (130-400) K/uL MPV (7.2-11.7) fL Neut % (Auto) (50.0-75.0) % Lymph % (Auto) (20.0-40.0) % [place] % (Auto) (0.0-10.0) % Eos % (Auto) (0.0-4.0) % Baso % (Auto) (0.0-2.0) % Neut # (Auto) (1.8-7.0) K/uL Lymph # (Auto) (1.0-4.3) K/uL [place] # (Auto) (0.0-0.8) K/uL Eos # (Auto) (0.0-0.7) K/uL Baso # (Auto) (0.0-0.2) K/uL Puncture Site Rr pCO2 38 (35-45) mm/Hg pO2 95 (80-100) mm/Hg HCO3 24.0 (21-28) mmol/L ABG pH 7.40 (7.35-7.45) ABG Total CO2 24.7 (22-28) mmol/L ABG O2 Saturation 98.2 H (95-98) % ABG Base Excess -1.1 (-2.0-3.0) mmol/L ABG Hemoglobin 11.9 (11.7-17.4) g/dL ABG Carboxyhemoglobin 3.0 H (0.5-1.5) % POC ABG HHb (Measured) 1.7 (0.0-5.0) % ABG Methemoglobin 0.9 (0.0-3.0) % Isaías Test Pos A-a O2 Difference 7.0 mm/Hg Respiratory Index 0.1 Hgb O2 Saturation 94.4 L (95.0-98.0) % FiO2 21.0 % Sodium 133 (132-148) mmol/L Potassium 3.9 (3.6-5.2) mmol/L Chloride 103 (98-107) mmol/L Carbon Dioxide 23 (22-30) mmol/L Anion Gap 11 (10-20) BUN 16 (7-17) mg/dL Creatinine 0.7 (0.7-1.2) mg/dL Est GFR ( Amer) > 60 Est GFR (Non-Af Amer) > 60 POC Glucose (mg/dL) 136 H (65-110) mg/dL Random Glucose 167 H (65-105) mg/dL Calcium 7.4 L (8.6-10.4) mg/dl Phosphorus 3.3 (2.5-4.5) mg/dL Magnesium 1.6 (1.6-2.3) mg/dL Total Bilirubin 0.5 (0.2-1.3) mg/dL AST 14 (14-36) U/L ALT 20 (9-52) U/L Alkaline Phosphatase 64 (38-126) U/L Total Protein 6.0 L (6.3-8.3) g/dL Albumin 2.8 L D (3.5-5.0) g/dL Globulin 3.1 (2.2-3.9) gm/dL Albumin/Globulin Ratio 0.9 L (1.0-2.1) Urine Color (YELLOW) Urine Clarity (Clear) Urine pH (5.0-8.0) Ur Specific [place] (1.003-1.030) Urine Protein (NEGATIVE) mg/dL Urine Glucose (UA) (Normal) mg/dL Urine Ketones (NEGATIVE) mg/dL Urine Blood (NEGATIVE) Urine Nitrate (NEGATIVE) Urine Bilirubin (NEGATIVE) Urine Urobilinogen (0.2-1.0) mg/dL Ur Leukocyte Esterase (Negative) Zach/uL Urine WBC (Auto) (0-5) /hpf Urine RBC (Auto) (0-3) /hpf Ur Squamous Epith Cells (0-5) /hpf Urine Bacteria (<OCC) Urine HCG, Qual (NEGATIVE) Salicylates mg/dL 1 Urine Opiates Screen (NEGATIVE) Urine Methadone Screen (NEGATIVE) Acetaminophen (10.0-30.0) ug/mL Ur Barbiturates Screen (NEGATIVE) Ur Phencyclidine Scrn (NEGATIVE) Ur Amphetamines Screen (NEGATIVE) U Benzodiazepines Scrn (NEGATIVE) U Oth Cocaine Metabols (NEGATIVE) U Cannabinoids Screen (NEGATIVE) Alcohol, Quantitative (0-10) mg/dl 07/23/17 07/23/17 07/23/17 Range/Units 22:41 22:23 20:00 WBC (4.8-10.8) K/uL RBC (3.80-5.20) Mil/uL Hgb (11.0-16.0) g/dL Hct (34.0-47.0) % MCV (81.0-99.0) fL MCH (27.0-31.0) pg MCHC (33.0-37.0) g/dL RDW (11.5-14.5) % Plt Count (130-400) K/uL MPV (7.2-11.7) fL Neut % (Auto) (50.0-75.0) % Lymph % (Auto) (20.0-40.0) % [place] % (Auto) (0.0-10.0) % Eos % (Auto) (0.0-4.0) % Baso % (Auto) (0.0-2.0) % Neut # (Auto) (1.8-7.0) K/uL Lymph # (Auto) (1.0-4.3) K/uL [place] # (Auto) (0.0-0.8) K/uL Eos # (Auto) (0.0-0.7) K/uL Baso # (Auto) (0.0-0.2) K/uL Puncture Site Rr pCO2 40 (35-45) mm/Hg pO2 86 (80-100) mm/Hg HCO3 23.2 (21-28) mmol/L ABG pH 7.37 (7.35-7.45) ABG Total CO2 24.3 (22-28) mmol/L ABG O2 Saturation 98.2 H (95-98) % ABG Base Excess -2.0 (-2.0-3.0) mmol/L ABG Hemoglobin 12.3 (11.7-17.4) g/dL ABG Carboxyhemoglobin 4.7 H (0.5-1.5) % POC ABG HHb (Measured) 1.7 (0.0-5.0) % ABG Methemoglobin 1.5 (0.0-3.0) % Isaías Test Po A-a O2 Difference 14.0 mm/Hg Respiratory Index 0.2 Hgb O2 Saturation 92.2 L (95.0-98.0) % FiO2 21.0 % Sodium (132-148) mmol/L Potassium (3.6-5.2) mmol/L Chloride (98-107) mmol/L Carbon Dioxide (22-30) mmol/L Anion Gap (10-20) BUN (7-17) mg/dL Creatinine (0.7-1.2) mg/dL Est GFR ( Amer) Est GFR (Non-Af Amer) POC Glucose (mg/dL) 230 H (65-110) mg/dL Random Glucose (65-105) mg/dL Calcium (8.6-10.4) mg/dl Phosphorus (2.5-4.5) mg/dL Magnesium (1.6-2.3) mg/dL Total Bilirubin (0.2-1.3) mg/dL AST (14-36) U/L ALT (9-52) U/L Alkaline Phosphatase (38-126) U/L Total Protein (6.3-8.3) g/dL Albumin (3.5-5.0) g/dL Globulin (2.2-3.9) gm/dL Albumin/Globulin Ratio (1.0-2.1) Urine Color (YELLOW) Urine Clarity (Clear) Urine pH (5.0-8.0) Ur Specific [place] (1.003-1.030) Urine Protein (NEGATIVE) mg/dL Urine Glucose (UA) (Normal) mg/dL Urine Ketones (NEGATIVE) mg/dL Urine Blood (NEGATIVE) Urine Nitrate (NEGATIVE) Urine Bilirubin (NEGATIVE) Urine Urobilinogen (0.2-1.0) mg/dL Ur Leukocyte Esterase (Negative) Zach/uL Urine WBC (Auto) (0-5) /hpf Urine RBC (Auto) (0-3) /hpf Ur Squamous Epith Cells (0-5) /hpf Urine Bacteria (<OCC) Urine HCG, Qual (NEGATIVE) Salicylates mg/dL 1 Urine Opiates Screen Negative (NEGATIVE) Urine Methadone Screen Negative (NEGATIVE) Acetaminophen (10.0-30.0) ug/mL Ur Barbiturates Screen Positive H (NEGATIVE) Ur Phencyclidine Scrn Negative (NEGATIVE) Ur Amphetamines Screen Negative (NEGATIVE) U Benzodiazepines Scrn Negative (NEGATIVE) U Oth Cocaine Metabols Negative (NEGATIVE) U Cannabinoids Screen Positive H (NEGATIVE) Alcohol, Quantitative (0-10) mg/dl 07/23/17 07/23/17 07/23/17 Range/Units 20:00 19:15 19:15 WBC (4.8-10.8) K/uL RBC (3.80-5.20) Mil/uL Hgb (11.0-16.0) g/dL Hct (34.0-47.0) % MCV (81.0-99.0) fL MCH (27.0-31.0) pg MCHC (33.0-37.0) g/dL RDW (11.5-14.5) % Plt Count (130-400) K/uL MPV (7.2-11.7) fL Neut % (Auto) (50.0-75.0) % Lymph % (Auto) (20.0-40.0) % [place] % (Auto) (0.0-10.0) % Eos % (Auto) (0.0-4.0) % Baso % (Auto) (0.0-2.0) % Neut # (Auto) (1.8-7.0) K/uL Lymph # (Auto) (1.0-4.3) K/uL [place] # (Auto) (0.0-0.8) K/uL Eos # (Auto) (0.0-0.7) K/uL Baso # (Auto) (0.0-0.2) K/uL Puncture Site pCO2 (35-45) mm/Hg pO2 (80-100) mm/Hg HCO3 (21-28) mmol/L ABG pH (7.35-7.45) ABG Total CO2 (22-28) mmol/L ABG O2 Saturation (95-98) % ABG Base Excess (-2.0-3.0) mmol/L ABG Hemoglobin (11.7-17.4) g/dL ABG Carboxyhemoglobin (0.5-1.5) % POC ABG HHb (Measured) (0.0-5.0) % ABG Methemoglobin (0.0-3.0) % Isaías Test A-a O2 Difference mm/Hg Respiratory Index Hgb O2 Saturation (95.0-98.0) % FiO2 % Sodium 132 (132-148) mmol/L Potassium 3.9 (3.6-5.2) mmol/L Chloride 94 L (98-107) mmol/L Carbon Dioxide 25 (22-30) mmol/L Anion Gap 17 (10-20) BUN 22 H (7-17) mg/dL Creatinine 1.1 (0.7-1.2) mg/dL Est GFR ( Amer) > 60 Est GFR (Non-Af Amer) 53 POC Glucose (mg/dL) (65-110) mg/dL Random Glucose 422 H* D (65-105) mg/dL Calcium 9.5 (8.6-10.4) mg/dl Phosphorus (2.5-4.5) mg/dL Magnesium 1.9 (1.6-2.3) mg/dL Total Bilirubin 0.4 (0.2-1.3) mg/dL AST 17 (14-36) U/L ALT 25 (9-52) U/L Alkaline Phosphatase 87 (38-126) U/L Total Protein 7.8 (6.3-8.3) g/dL Albumin 4.0 (3.5-5.0) g/dL Globulin 3.8 (2.2-3.9) gm/dL Albumin/Globulin Ratio 1.1 (1.0-2.1) Urine Color Straw (YELLOW) Urine Clarity Clear (Clear) Urine pH 6.0 (5.0-8.0) Ur Specific [place] 1.010 (1.003-1.030) Urine Protein 2+ H (NEGATIVE) mg/dL Urine Glucose (UA) 3+ H (Normal) mg/dL Urine Ketones Negative (NEGATIVE) mg/dL Urine Blood 1+ H (NEGATIVE) Urine Nitrate Negative (NEGATIVE) Urine Bilirubin Negative (NEGATIVE) Urine Urobilinogen Normal (0.2-1.0) mg/dL Ur Leukocyte Esterase Neg (Negative) Zach/uL Urine WBC (Auto) (0-5) /hpf Urine RBC (Auto) 1 (0-3) /hpf Ur Squamous Epith Cells 1 (0-5) /hpf Urine Bacteria Rare (<OCC) Urine HCG, Qual Negative (NEGATIVE) Salicylates < 1.0 mg/dL 1 Urine Opiates Screen (NEGATIVE) Urine Methadone Screen (NEGATIVE) Acetaminophen < 10.0 L (10.0-30.0) ug/mL Ur Barbiturates Screen (NEGATIVE) Ur Phencyclidine Scrn (NEGATIVE) Ur Amphetamines Screen (NEGATIVE) U Benzodiazepines Scrn (NEGATIVE) U Oth Cocaine Metabols (NEGATIVE) U Cannabinoids Screen (NEGATIVE) Alcohol, Quantitative 83 H (0-10) mg/dl 07/23/17 07/23/17 Range/Units 19:13 18:14 WBC 15.9 H (4.8-10.8) K/uL RBC 4.27 (3.80-5.20) Mil/uL Hgb 14.1 (11.0-16.0) g/dL Hct 40.8 (34.0-47.0) % MCV 95.5 (81.0-99.0) fL MCH 33.0 H (27.0-31.0) pg MCHC 34.5 (33.0-37.0) g/dL RDW 12.7 (11.5-14.5) % Plt Count 249 (130-400) K/uL MPV 10.1 (7.2-11.7) fL Neut % (Auto) 78.4 H (50.0-75.0) % Lymph % (Auto) 11.6 L (20.0-40.0) % [place] % (Auto) 5.0 (0.0-10.0) % Eos % (Auto) 2.8 (0.0-4.0) % Baso % (Auto) 2.2 H (0.0-2.0) % Neut # (Auto) 12.5 H (1.8-7.0) K/uL Lymph # (Auto) 1.8 (1.0-4.3) K/uL [place] # (Auto) 0.8 (0.0-0.8) K/uL Eos # (Auto) 0.4 (0.0-0.7) K/uL Baso # (Auto) 0.3 H (0.0-0.2) K/uL Puncture Site pCO2 (35-45) mm/Hg pO2 (80-100) mm/Hg HCO3 (21-28) mmol/L ABG pH (7.35-7.45) ABG Total CO2 (22-28) mmol/L ABG O2 Saturation (95-98) % ABG Base Excess (-2.0-3.0) mmol/L ABG Hemoglobin (11.7-17.4) g/dL ABG Carboxyhemoglobin (0.5-1.5) % POC ABG HHb (Measured) (0.0-5.0) % ABG Methemoglobin (0.0-3.0) % Isaías Test A-a O2 Difference mm/Hg Respiratory Index Hgb O2 Saturation (95.0-98.0) % FiO2 % Sodium (132-148) mmol/L Potassium (3.6-5.2) mmol/L Chloride (98-107) mmol/L Carbon Dioxide (22-30) mmol/L Anion Gap (10-20) BUN (7-17) mg/dL Creatinine (0.7-1.2) mg/dL Est GFR ( Amer) Est GFR (Non-Af Amer) POC Glucose (mg/dL) 405 H* (65-110) mg/dL Random Glucose (65-105) mg/dL Calcium (8.6-10.4) mg/dl Phosphorus (2.5-4.5) mg/dL Magnesium (1.6-2.3) mg/dL Total Bilirubin (0.2-1.3) mg/dL AST (14-36) U/L ALT (9-52) U/L Alkaline Phosphatase (38-126) U/L Total Protein (6.3-8.3) g/dL Albumin (3.5-5.0) g/dL Globulin (2.2-3.9) gm/dL Albumin/Globulin Ratio (1.0-2.1) Urine Color (YELLOW) Urine Clarity (Clear) Urine pH (5.0-8.0) Ur Specific [place] (1.003-1.030) Urine Protein (NEGATIVE) mg/dL Urine Glucose (UA) (Normal) mg/dL Urine Ketones (NEGATIVE) mg/dL Urine Blood (NEGATIVE) Urine Nitrate (NEGATIVE) Urine Bilirubin (NEGATIVE) Urine Urobilinogen (0.2-1.0) mg/dL Ur Leukocyte Esterase (Negative) Zach/uL Urine WBC (Auto) (0-5) /hpf Urine RBC (Auto) (0-3) /hpf Ur Squamous Epith Cells (0-5) /hpf Urine Bacteria (<OCC) Urine HCG, Qual (NEGATIVE) Salicylates mg/dL 1 Urine Opiates Screen (NEGATIVE) Urine Methadone Screen (NEGATIVE) Acetaminophen (10.0-30.0) ug/mL Ur Barbiturates Screen (NEGATIVE) Ur Phencyclidine Scrn (NEGATIVE) Ur Amphetamines Screen (NEGATIVE) U Benzodiazepines Scrn (NEGATIVE) U Oth Cocaine Metabols (NEGATIVE) U Cannabinoids Screen (NEGATIVE) Alcohol, Quantitative (0-10) mg/dl Laboratory Results - last 24 hr 07/23/17 07/23/17 07/23/17 18:14 19:13 19:15 WBC 15.9 H RBC 4.27 Hgb 14.1 Hct 40.8 MCV 95.5 MCH 33.0 H MCHC 34.5 RDW 12.7 Plt Count 249 MPV 10.1 Neut % (Auto) 78.4 H Lymph % (Auto) 11.6 L [place] % (Auto) 5.0 Eos % (Auto) 2.8 Baso % (Auto) 2.2 H Neut # (Auto) 12.5 H Lymph # (Auto) 1.8 [place] # (Auto) 0.8 Eos # (Auto) 0.4 Baso # (Auto) 0.3 H Puncture Site pCO2 pO2 HCO3 ABG pH ABG Total CO2 ABG O2 Saturation ABG Base Excess ABG Hemoglobin ABG Carboxyhemoglobin POC ABG HHb (Measured) ABG Methemoglobin Isaías Test A-a O2 Difference Respiratory Index Hgb O2 Saturation FiO2 Sodium 132 Potassium 3.9 Chloride 94 L Carbon Dioxide 25 Anion Gap 17 BUN 22 H Creatinine 1.1 Est GFR ( Amer) > 60 Est GFR (Non-Af Amer) 53 POC Glucose (mg/dL) 405 H* Random Glucose 422 H* D Calcium 9.5 Phosphorus Magnesium 1.9 Total Bilirubin 0.4 AST 17 ALT 25 Alkaline Phosphatase 87 Total Protein 7.8 Albumin 4.0 Globulin 3.8 Albumin/Globulin Ratio 1.1 Urine Color Urine Clarity Urine pH Ur Specific [place] Urine Protein Urine Glucose (UA) Urine Ketones Urine Blood Urine Nitrate Urine Bilirubin Urine Urobilinogen Ur Leukocyte Esterase Urine WBC (Auto) Urine RBC (Auto) Ur Squamous Epith Cells Urine Bacteria Urine HCG, Qual Salicylates Urine Opiates Screen Urine Methadone Screen Acetaminophen Ur Barbiturates Screen Ur Phencyclidine Scrn Ur Amphetamines Screen U Benzodiazepines Scrn U Oth Cocaine Metabols U Cannabinoids Screen Alcohol, Quantitative 83 H 07/23/17 07/23/17 07/23/17 19:15 20:00 20:00 WBC RBC Hgb Hct MCV MCH MCHC RDW Plt Count MPV Neut % (Auto) Lymph % (Auto) [place] % (Auto) Eos % (Auto) Baso % (Auto) Neut # (Auto) Lymph # (Auto) [place] # (Auto) Eos # (Auto) Baso # (Auto) Puncture Site pCO2 pO2 HCO3 ABG pH ABG Total CO2 ABG O2 Saturation ABG Base Excess ABG Hemoglobin ABG Carboxyhemoglobin POC ABG HHb (Measured) ABG Methemoglobin Isaías Test A-a O2 Difference Respiratory Index Hgb O2 Saturation FiO2 Sodium Potassium Chloride Carbon Dioxide Anion Gap BUN Creatinine Est GFR ( Amer) Est GFR (Non-Af Amer) POC Glucose (mg/dL) Random Glucose Calcium Phosphorus Magnesium Total Bilirubin AST ALT Alkaline Phosphatase Total Protein Albumin Globulin Albumin/Globulin Ratio Urine Color Straw Urine Clarity Clear Urine pH 6.0 Ur Specific [place] 1.010 Urine Protein 2+ H Urine Glucose (UA) 3+ H Urine Ketones Negative Urine Blood 1+ H Urine Nitrate Negative Urine Bilirubin Negative Urine Urobilinogen Normal Ur Leukocyte Esterase Neg Urine WBC (Auto) Urine RBC (Auto) 1 Ur Squamous Epith Cells 1 Urine Bacteria Rare Urine HCG, Qual Negative Salicylates < 1.0 Urine Opiates Screen Negative Urine Methadone Screen Negative Acetaminophen < 10.0 L Ur Barbiturates Screen Positive H Ur Phencyclidine Scrn Negative Ur Amphetamines Screen Negative U Benzodiazepines Scrn Negative U Oth Cocaine Metabols Negative U Cannabinoids Screen Positive H Alcohol, Quantitative 07/23/17 07/23/17 07/24/17 22:23 22:41 03:51 WBC RBC Hgb Hct MCV MCH MCHC RDW Plt Count MPV Neut % (Auto) Lymph % (Auto) [place] % (Auto) Eos % (Auto) Baso % (Auto) Neut # (Auto) Lymph # (Auto) [place] # (Auto) Eos # (Auto) Baso # (Auto) Puncture Site Rr pCO2 40 pO2 86 HCO3 23.2 ABG pH 7.37 ABG Total CO2 24.3 ABG O2 Saturation 98.2 H ABG Base Excess -2.0 ABG Hemoglobin 12.3 ABG Carboxyhemoglobin 4.7 H POC ABG HHb (Measured) 1.7 ABG Methemoglobin 1.5 Isaías Test Po A-a O2 Difference 14.0 Respiratory Index 0.2 Hgb O2 Saturation 92.2 L FiO2 21.0 Sodium Potassium Chloride Carbon Dioxide Anion Gap BUN Creatinine Est GFR ( Amer) Est GFR (Non-Af Amer) POC Glucose (mg/dL) 230 H 136 H Random Glucose Calcium Phosphorus Magnesium Total Bilirubin AST ALT Alkaline Phosphatase Total Protein Albumin Globulin Albumin/Globulin Ratio Urine Color Urine Clarity Urine pH Ur Specific [place] Urine Protein Urine Glucose (UA) Urine Ketones Urine Blood Urine Nitrate Urine Bilirubin Urine Urobilinogen Ur Leukocyte Esterase Urine WBC (Auto) Urine RBC (Auto) Ur Squamous Epith Cells Urine Bacteria Urine HCG, Qual Salicylates Urine Opiates Screen Urine Methadone Screen Acetaminophen Ur Barbiturates Screen Ur Phencyclidine Scrn Ur Amphetamines Screen U Benzodiazepines Scrn U Oth Cocaine Metabols U Cannabinoids Screen Alcohol, Quantitative 07/24/17 07/24/17 07/24/17 05:10 06:23 06:24 WBC 15.6 H RBC 3.62 L Hgb 12.0 D Hct 34.3 MCV 94.9 MCH 33.1 H MCHC 34.9 RDW 12.7 Plt Count 203 MPV 9.9 Neut % (Auto) 61.4 Lymph % (Auto) 25.6 [place] % (Auto) 6.7 Eos % (Auto) 5.5 H Baso % (Auto) 0.8 Neut # (Auto) 9.6 H Lymph # (Auto) 4.0 [place] # (Auto) 1.0 H Eos # (Auto) 0.9 H Baso # (Auto) 0.1 Puncture Site Rr pCO2 38 pO2 95 HCO3 24.0 ABG pH 7.40 ABG Total CO2 24.7 ABG O2 Saturation 98.2 H ABG Base Excess -1.1 ABG Hemoglobin 11.9 ABG Carboxyhemoglobin 3.0 H POC ABG HHb (Measured) 1.7 ABG Methemoglobin 0.9 Isaías Test Pos A-a O2 Difference 7.0 Respiratory Index 0.1 Hgb O2 Saturation 94.4 L FiO2 21.0 Sodium 133 Potassium 3.9 Chloride 103 Carbon Dioxide 23 Anion Gap 11 BUN 16 Creatinine 0.7 Est GFR ( Amer) > 60 Est GFR (Non-Af Amer) > 60 POC Glucose (mg/dL) Random Glucose 167 H Calcium 7.4 L Phosphorus 3.3 Magnesium 1.6 Total Bilirubin 0.5 AST 14 ALT 20 Alkaline Phosphatase 64 Total Protein 6.0 L Albumin 2.8 L D Globulin 3.1 Albumin/Globulin Ratio 0.9 L Urine Color Urine Clarity Urine pH Ur Specific [place] Urine Protein Urine Glucose (UA) Urine Ketones Urine Blood Urine Nitrate Urine Bilirubin Urine Urobilinogen Ur Leukocyte Esterase Urine WBC (Auto) Urine RBC (Auto) Ur Squamous Epith Cells Urine Bacteria Urine HCG, Qual Salicylates Urine Opiates Screen Urine Methadone Screen Acetaminophen Ur Barbiturates Screen Ur Phencyclidine Scrn Ur Amphetamines Screen U Benzodiazepines Scrn U Oth Cocaine Metabols U Cannabinoids Screen Alcohol, Quantitative 07/24/17 07/24/17 06:24 08:22 WBC RBC Hgb Hct MCV MCH MCHC RDW Plt Count MPV Neut % (Auto) Lymph % (Auto) [place] % (Auto) Eos % (Auto) Baso % (Auto) Neut # (Auto) Lymph # (Auto) [place] # (Auto) Eos # (Auto) Baso # (Auto) Puncture Site pCO2 pO2 HCO3 ABG pH ABG Total CO2 ABG O2 Saturation ABG Base Excess ABG Hemoglobin ABG Carboxyhemoglobin POC ABG HHb (Measured) ABG Methemoglobin Isaías Test A-a O2 Difference Respiratory Index Hgb O2 Saturation FiO2 Sodium Potassium Chloride Carbon Dioxide Anion Gap BUN Creatinine Est GFR ( Amer) Est GFR (Non-Af Amer) POC Glucose (mg/dL) 175 H Random Glucose Calcium Phosphorus Magnesium Total Bilirubin AST ALT Alkaline Phosphatase Total Protein Albumin Globulin Albumin/Globulin Ratio Urine Color Yellow Urine Clarity Hazy Urine pH 6.0 Ur Specific [place] 1.014 Urine Protein 3+ H Urine Glucose (UA) 3+ H Urine Ketones Negative Urine Blood Negative Urine Nitrate Negative Urine Bilirubin Negative Urine Urobilinogen Normal Ur Leukocyte Esterase Neg Urine WBC (Auto) 1 Urine RBC (Auto) 1 Ur Squamous Epith Cells 13 H Urine Bacteria Rare Urine HCG, Qual Salicylates Urine Opiates Screen Urine Methadone Screen Acetaminophen Ur Barbiturates Screen Ur Phencyclidine Scrn Ur Amphetamines Screen U Benzodiazepines Scrn U Oth Cocaine Metabols U Cannabinoids Screen Alcohol, Quantitative EKG/Cardiology Studies: Cardiology / EKG Studies 07/23/17 18:27 ELECTROCARDIOGRAM Stat Comment: Mode Of Transportation: BED Reason For Exam: Overdose 07/23/17 23:08 EKG [ELECTROCARDIOGRAM] Stat Comment: Mode Of Transportation: Reason For Exam: Repeat Fingerstick Blood Sugar Results: 174 - Procedures Procedures (Free Text): - Constitutional Appears: No Acute Distress Additional comments: very agitated - Head Exam Head Exam: ATRAUMATIC, NORMAL INSPECTION, NORMOCEPHALIC - Eye Exam Eye Exam: Normal appearance, PERRL. absent: Conjunctival injection, Periorbital swelling - ENT Exam ENT Exam: Mucous Membranes Moist - Neck Exam Neck exam: Positive for: Normal Inspection - Respiratory Exam Respiratory Exam: Clear to Auscultation Bilateral, NORMAL BREATHING PATTERN - Cardiovascular Exam Cardiovascular Exam: REGULAR RHYTHM - GI/Abdominal Exam GI & Abdominal Exam: Normal Bowel Sounds, Soft. absent: Tenderness - Extremities Exam Extremities exam: Positive for: normal inspection. Negative for: pedal edema, tenderness - Neurological Exam Neurological exam: Altered - Skin Skin Exam: Normal Color, Warm Review of Systems - Review of Systems All systems: reviewed and no additional remarkable complaints except (as above) Critical Care Progress Note - Nutrition Nutrition: Nutrition Category Date Time Status Consistent Carbohydrate [DIET] Diets 07/23/17 Dinner Active Assessment/Plan - Assessment and Plan (Free Text) Assessment: 47 F with PMHx Bipolar Disorder, Depression, Diabetes, HTN, Seizures, brought to ER after ingestion of 90 tabs of 32.4mg Phenobarbital. UDS also showed alcohol and marijuana. Psych: Phenobarbital overdose Poison control called by ER and recommended observation. UDS also (+) for alcohol and marijuana Extremely agitated today, ripped out IV, wanted to leave AMA, [facility] called - Dr Hdz convinced patient to stay 1 more day all vitals NORMAL Buprenorphine 4mg SL QD Klonopin 1mg PO TID Seroquel 300mg PO HS 1:[address] Hdz on board Endo: DM Accuchecks with low dose insulin coverage <Virgil Curiel S - Last Filed: 07/24/17 17:18> CCU Objective - Vital Signs / Intake & Output Vital Signs (Last 4 hours): Vital Signs Pulse Resp BP Pulse Ox 07/24/17 16:02 90 16 147/86 93 L 07/24/17 15:50 89 11 L 158/84 H 98 07/24/17 14:00 88 11 L Intake and Output (Last 8hrs): Intake & Output 07/24/17 07/24/17 07/24/17 06:59 14:59 22:59 Intake Total 1400 900 300 Output Total 100 500 Balance 1300 900 -200 Weight 199 lb 4.766 oz Intake: Intake, IV Amount 1400 500 200 Left Antecubital 700 200 Left Distal Port 700 300 Antecubital Right Wrist 200 Oral 400 100 Output: Urine 100 Urine, Voided 100 Emesis 500 Other: Voiding Method Bedpan # Voids Urine, Voided 1 - Medications Active Medications: Active Medications Generic Name Dose Route Start Last Admin Trade Name Freq PRN Reason Stop Dose Admin Amitriptyline HCl 25 mg 07/24/17 22:00 Elavil PO HS DENNIS Buprenorphine HCl 4 mg 07/24/17 11:00 07/24/17 11:00 Subutex SL 4 mg DAILY DENNIS Administration Clonazepam 1 mg 07/24/17 14:00 07/24/17 14:50 Klonopin PO 1 mg TID DENNIS Administration Docusate Sodium 100 mg 07/24/17 10:00 07/24/17 11:00 Colace PO 100 mg BID DENNIS Administration Enoxaparin Sodium 40 mg 07/24/17 10:00 07/24/17 11:00 Lovenox SC 40 mg DAILY DENNIS Administration Haloperidol 5 mg 07/24/17 13:56 Haldol PO Q1H PRN agitation max 4x/24h Sodium Chloride 1,000 mls @ 100 mls/hr 07/23/17 22:45 07/24/17 07:48 Sodium Chloride 0.45% IV Not Given .Q10H [facility] Insulin Human Regular 0 unit 07/24/17 00:00 07/24/17 16:59 Novolin R SC 1 unit Q4 [facility] Administration Protocol Magnesium Citrate 300 ml 07/23/17 21:25 Citrate Of Mag PO ONCE PRN Constipation Pantoprazole Sodium 40 mg 07/24/17 10:00 07/24/17 12:30 Protonix Inj IVP 40 mg DAILY [facility] Administration Pneumococcal Polyvalent Vaccine 0.5 ml 07/26/17 10:00 Pneumovax 23 Vaccine IM 07/26/17 10:01 .ONCE ONE Quetiapine Fumarate 300 mg 07/24/17 22:00 Seroquel PO HS [facility] - Patient Studies Lab Studies: Lab Studies 07/24/17 07/24/17 07/24/17 Range/Units 16:24 11:24 08:22 WBC (4.8-10.8) K/uL RBC (3.80-5.20) Mil/uL Hgb (11.0-16.0) g/dL Hct (34.0-47.0) % MCV (81.0-99.0) fL MCH (27.0-31.0) pg MCHC (33.0-37.0) g/dL RDW (11.5-14.5) % Plt Count (130-400) K/uL MPV (7.2-11.7) fL Neut % (Auto) (50.0-75.0) % Lymph % (Auto) (20.0-40.0) % [place] % (Auto) (0.0-10.0) % Eos % (Auto) (0.0-4.0) % Baso % (Auto) (0.0-2.0) % Neut # (Auto) (1.8-7.0) K/uL Lymph # (Auto) (1.0-4.3) K/uL [place] # (Auto) (0.0-0.8) K/uL Eos # (Auto) (0.0-0.7) K/uL Baso # (Auto) (0.0-0.2) K/uL Puncture Site pCO2 (35-45) mm/Hg pO2 (80-100) mm/Hg HCO3 (21-28) mmol/L ABG pH (7.35-7.45) ABG Total CO2 (22-28) mmol/L ABG O2 Saturation (95-98) % ABG Base Excess (-2.0-3.0) mmol/L ABG Hemoglobin (11.7-17.4) g/dL ABG Carboxyhemoglobin (0.5-1.5) % POC ABG HHb (Measured) (0.0-5.0) % ABG Methemoglobin (0.0-3.0) % Isaías Test A-a O2 Difference mm/Hg Respiratory Index Hgb O2 Saturation (95.0-98.0) % FiO2 % Sodium (132-148) mmol/L Potassium (3.6-5.2) mmol/L Chloride (98-107) mmol/L Carbon Dioxide (22-30) mmol/L Anion Gap (10-20) BUN (7-17) mg/dL Creatinine (0.7-1.2) mg/dL Est GFR ( Amer) Est GFR (Non-Af Amer) POC Glucose (mg/dL) 188 H 183 H 175 H (65-110) mg/dL Random Glucose (65-105) mg/dL Calcium (8.6-10.4) mg/dl Phosphorus (2.5-4.5) mg/dL Magnesium (1.6-2.3) mg/dL Total Bilirubin (0.2-1.3) mg/dL AST (14-36) U/L ALT (9-52) U/L Alkaline Phosphatase (38-126) U/L Total Protein (6.3-8.3) g/dL Albumin (3.5-5.0) g/dL Globulin (2.2-3.9) gm/dL Albumin/Globulin Ratio (1.0-2.1) Urine Color (YELLOW) Urine Clarity (Clear) Urine pH (5.0-8.0) Ur Specific [place] (1.003-1.030) Urine Protein (NEGATIVE) mg/dL Urine Glucose (UA) (Normal) mg/dL Urine Ketones (NEGATIVE) mg/dL Urine Blood (NEGATIVE) Urine Nitrate (NEGATIVE) Urine Bilirubin (NEGATIVE) Urine Urobilinogen (0.2-1.0) mg/dL Ur Leukocyte Esterase (Negative) Zach/uL Urine WBC (Auto) (0-5) /hpf Urine RBC (Auto) (0-3) /hpf Ur Squamous Epith Cells (0-5) /hpf Urine Bacteria (<OCC) Urine HCG, Qual (NEGATIVE) Salicylates mg/dL 1 Urine Opiates Screen (NEGATIVE) Urine Methadone Screen (NEGATIVE) Acetaminophen (10.0-30.0) ug/mL Ur Barbiturates Screen (NEGATIVE) Ur Phencyclidine Scrn (NEGATIVE) Ur Amphetamines Screen (NEGATIVE) U Benzodiazepines Scrn (NEGATIVE) U Oth Cocaine Metabols (NEGATIVE) U Cannabinoids Screen (NEGATIVE) Alcohol, Quantitative (0-10) mg/dl 07/24/17 07/24/17 07/24/17 Range/Units 06:24 06:24 06:23 WBC 15.6 H (4.8-10.8) K/uL RBC 3.62 L (3.80-5.20) Mil/uL Hgb 12.0 D (11.0-16.0) g/dL Hct 34.3 (34.0-47.0) % MCV 94.9 (81.0-99.0) fL MCH 33.1 H (27.0-31.0) pg MCHC 34.9 (33.0-37.0) g/dL RDW 12.7 (11.5-14.5) % Plt Count 203 (130-400) K/uL MPV 9.9 (7.2-11.7) fL Neut % (Auto) 61.4 (50.0-75.0) % Lymph % (Auto) 25.6 (20.0-40.0) % [place] % (Auto) 6.7 (0.0-10.0) % Eos % (Auto) 5.5 H (0.0-4.0) % Baso % (Auto) 0.8 (0.0-2.0) % Neut # (Auto) 9.6 H (1.8-7.0) K/uL Lymph # (Auto) 4.0 (1.0-4.3) K/uL [place] # (Auto) 1.0 H (0.0-0.8) K/uL Eos # (Auto) 0.9 H (0.0-0.7) K/uL Baso # (Auto) 0.1 (0.0-0.2) K/uL Puncture Site pCO2 (35-45) mm/Hg pO2 (80-100) mm/Hg HCO3 (21-28) mmol/L ABG pH (7.35-7.45) ABG Total CO2 (22-28) mmol/L ABG O2 Saturation (95-98) % ABG Base Excess (-2.0-3.0) mmol/L ABG Hemoglobin (11.7-17.4) g/dL ABG Carboxyhemoglobin (0.5-1.5) % POC ABG HHb (Measured) (0.0-5.0) % ABG Methemoglobin (0.0-3.0) % Isaías Test A-a O2 Difference mm/Hg Respiratory Index Hgb O2 Saturation (95.0-98.0) % FiO2 % Sodium 133 (132-148) mmol/L Potassium 3.9 (3.6-5.2) mmol/L Chloride 103 (98-107) mmol/L Carbon Dioxide 23 (22-30) mmol/L Anion Gap 11 (10-20) BUN 16 (7-17) mg/dL Creatinine 0.7 (0.7-1.2) mg/dL Est GFR ( Amer) > 60 Est GFR (Non-Af Amer) > 60 POC Glucose (mg/dL) (65-110) mg/dL Random Glucose 167 H (65-105) mg/dL Calcium 7.4 L (8.6-10.4) mg/dl Phosphorus 3.3 (2.5-4.5) mg/dL Magnesium 1.6 (1.6-2.3) mg/dL Total Bilirubin 0.5 (0.2-1.3) mg/dL AST 14 (14-36) U/L ALT 20 (9-52) U/L Alkaline Phosphatase 64 (38-126) U/L Total Protein 6.0 L (6.3-8.3) g/dL Albumin 2.8 L D (3.5-5.0) g/dL Globulin 3.1 (2.2-3.9) gm/dL Albumin/Globulin Ratio 0.9 L (1.0-2.1) Urine Color Yellow (YELLOW) Urine Clarity Hazy (Clear) Urine pH 6.0 (5.0-8.0) Ur Specific [place] 1.014 (1.003-1.030) Urine Protein 3+ H (NEGATIVE) mg/dL Urine Glucose (UA) 3+ H (Normal) mg/dL Urine Ketones Negative (NEGATIVE) mg/dL Urine Blood Negative (NEGATIVE) Urine Nitrate Negative (NEGATIVE) Urine Bilirubin Negative (NEGATIVE) Urine Urobilinogen Normal (0.2-1.0) mg/dL Ur Leukocyte Esterase Neg (Negative) Zach/uL Urine WBC (Auto) 1 (0-5) /hpf Urine RBC (Auto) 1 (0-3) /hpf Ur Squamous Epith Cells 13 H (0-5) /hpf Urine Bacteria Rare (<OCC) Urine HCG, Qual (NEGATIVE) Salicylates mg/dL 1 Urine Opiates Screen (NEGATIVE) Urine Methadone Screen (NEGATIVE) Acetaminophen (10.0-30.0) ug/mL Ur Barbiturates Screen (NEGATIVE) Ur Phencyclidine Scrn (NEGATIVE) Ur Amphetamines Screen (NEGATIVE) U Benzodiazepines Scrn (NEGATIVE) U Oth Cocaine Metabols (NEGATIVE) U Cannabinoids Screen (NEGATIVE) Alcohol, Quantitative (0-10) mg/dl 07/24/17 07/24/17 07/23/17 Range/Units 05:10 03:51 22:41 WBC (4.8-10.8) K/uL RBC (3.80-5.20) Mil/uL Hgb (11.0-16.0) g/dL Hct (34.0-47.0) % MCV (81.0-99.0) fL MCH (27.0-31.0) pg MCHC (33.0-37.0) g/dL RDW (11.5-14.5) % Plt Count (130-400) K/uL MPV (7.2-11.7) fL Neut % (Auto) (50.0-75.0) % Lymph % (Auto) (20.0-40.0) % [place] % (Auto) (0.0-10.0) % Eos % (Auto) (0.0-4.0) % Baso % (Auto) (0.0-2.0) % Neut # (Auto) (1.8-7.0) K/uL Lymph # (Auto) (1.0-4.3) K/uL [place] # (Auto) (0.0-0.8) K/uL Eos # (Auto) (0.0-0.7) K/uL Baso # (Auto) (0.0-0.2) K/uL Puncture Site Rr Rr pCO2 38 40 (35-45) mm/Hg pO2 95 86 (80-100) mm/Hg HCO3 24.0 23.2 (21-28) mmol/L ABG pH 7.40 7.37 (7.35-7.45) ABG Total CO2 24.7 24.3 (22-28) mmol/L ABG O2 Saturation 98.2 H 98.2 H (95-98) % ABG Base Excess -1.1 -2.0 (-2.0-3.0) mmol/L ABG Hemoglobin 11.9 12.3 (11.7-17.4) g/dL ABG Carboxyhemoglobin 3.0 H 4.7 H (0.5-1.5) % POC ABG HHb (Measured) 1.7 1.7 (0.0-5.0) % ABG Methemoglobin 0.9 1.5 (0.0-3.0) % Isaías Test Pos Po A-a O2 Difference 7.0 14.0 mm/Hg Respiratory Index 0.1 0.2 Hgb O2 Saturation 94.4 L 92.2 L (95.0-98.0) % FiO2 21.0 21.0 % Sodium (132-148) mmol/L Potassium (3.6-5.2) mmol/L Chloride (98-107) mmol/L Carbon Dioxide (22-30) mmol/L Anion Gap (10-20) BUN (7-17) mg/dL Creatinine (0.7-1.2) mg/dL Est GFR ( Amer) Est GFR (Non-Af Amer) POC Glucose (mg/dL) 136 H (65-110) mg/dL Random Glucose (65-105) mg/dL Calcium (8.6-10.4) mg/dl Phosphorus (2.5-4.5) mg/dL Magnesium (1.6-2.3) mg/dL Total Bilirubin (0.2-1.3) mg/dL AST (14-36) U/L ALT (9-52) U/L Alkaline Phosphatase (38-126) U/L Total Protein (6.3-8.3) g/dL Albumin (3.5-5.0) g/dL Globulin (2.2-3.9) gm/dL Albumin/Globulin Ratio (1.0-2.1) Urine Color (YELLOW) Urine Clarity (Clear) Urine pH (5.0-8.0) Ur Specific [place] (1.003-1.030) Urine Protein (NEGATIVE) mg/dL Urine Glucose (UA) (Normal) mg/dL Urine Ketones (NEGATIVE) mg/dL Urine Blood (NEGATIVE) Urine Nitrate (NEGATIVE) Urine Bilirubin (NEGATIVE) Urine Urobilinogen (0.2-1.0) mg/dL Ur Leukocyte Esterase (Negative) Zach/uL Urine WBC (Auto) (0-5) /hpf Urine RBC (Auto) (0-3) /hpf Ur Squamous Epith Cells (0-5) /hpf Urine Bacteria (<OCC) Urine HCG, Qual (NEGATIVE) Salicylates mg/dL 1 Urine Opiates Screen (NEGATIVE) Urine Methadone Screen (NEGATIVE) Acetaminophen (10.0-30.0) ug/mL Ur Barbiturates Screen (NEGATIVE) Ur Phencyclidine Scrn (NEGATIVE) Ur Amphetamines Screen (NEGATIVE) U Benzodiazepines Scrn (NEGATIVE) U Oth Cocaine Metabols (NEGATIVE) U Cannabinoids Screen (NEGATIVE) Alcohol, Quantitative (0-10) mg/dl 07/23/17 07/23/17 07/23/17 Range/Units 22:23 20:00 20:00 WBC (4.8-10.8) K/uL RBC (3.80-5.20) Mil/uL Hgb (11.0-16.0) g/dL Hct (34.0-47.0) % MCV (81.0-99.0) fL MCH (27.0-31.0) pg MCHC (33.0-37.0) g/dL RDW (11.5-14.5) % Plt Count (130-400) K/uL MPV (7.2-11.7) fL Neut % (Auto) (50.0-75.0) % Lymph % (Auto) (20.0-40.0) % [place] % (Auto) (0.0-10.0) % Eos % (Auto) (0.0-4.0) % Baso % (Auto) (0.0-2.0) % Neut # (Auto) (1.8-7.0) K/uL Lymph # (Auto) (1.0-4.3) K/uL [place] # (Auto) (0.0-0.8) K/uL Eos # (Auto) (0.0-0.7) K/uL Baso # (Auto) (0.0-0.2) K/uL Puncture Site pCO2 (35-45) mm/Hg pO2 (80-100) mm/Hg HCO3 (21-28) mmol/L ABG pH (7.35-7.45) ABG Total CO2 (22-28) mmol/L ABG O2 Saturation (95-98) % ABG Base Excess (-2.0-3.0) mmol/L ABG Hemoglobin (11.7-17.4) g/dL ABG Carboxyhemoglobin (0.5-1.5) % POC ABG HHb (Measured) (0.0-5.0) % ABG Methemoglobin (0.0-3.0) % Isaías Test A-a O2 Difference mm/Hg Respiratory Index Hgb O2 Saturation (95.0-98.0) % FiO2 % Sodium (132-148) mmol/L Potassium (3.6-5.2) mmol/L Chloride (98-107) mmol/L Carbon Dioxide (22-30) mmol/L Anion Gap (10-20) BUN (7-17) mg/dL Creatinine (0.7-1.2) mg/dL Est GFR ( Amer) Est GFR (Non-Af Amer) POC Glucose (mg/dL) 230 H (65-110) mg/dL Random Glucose (65-105) mg/dL Calcium (8.6-10.4) mg/dl Phosphorus (2.5-4.5) mg/dL Magnesium (1.6-2.3) mg/dL Total Bilirubin (0.2-1.3) mg/dL AST (14-36) U/L ALT (9-52) U/L Alkaline Phosphatase (38-126) U/L Total Protein (6.3-8.3) g/dL Albumin (3.5-5.0) g/dL Globulin (2.2-3.9) gm/dL Albumin/Globulin Ratio (1.0-2.1) Urine Color Straw (YELLOW) Urine Clarity Clear (Clear) Urine pH 6.0 (5.0-8.0) Ur Specific [place] 1.010 (1.003-1.030) Urine Protein 2+ H (NEGATIVE) mg/dL Urine Glucose (UA) 3+ H (Normal) mg/dL Urine Ketones Negative (NEGATIVE) mg/dL Urine Blood 1+ H (NEGATIVE) Urine Nitrate Negative (NEGATIVE) Urine Bilirubin Negative (NEGATIVE) Urine Urobilinogen Normal (0.2-1.0) mg/dL Ur Leukocyte Esterase Neg (Negative) Zach/uL Urine WBC (Auto) (0-5) /hpf Urine RBC (Auto) 1 (0-3) /hpf Ur Squamous Epith Cells 1 (0-5) /hpf Urine Bacteria Rare (<OCC) Urine HCG, Qual Negative (NEGATIVE) Salicylates mg/dL 1 Urine Opiates Screen Negative (NEGATIVE) Urine Methadone Screen Negative (NEGATIVE) Acetaminophen (10.0-30.0) ug/mL Ur Barbiturates Screen Positive H (NEGATIVE) Ur Phencyclidine Scrn Negative (NEGATIVE) Ur Amphetamines Screen Negative (NEGATIVE) U Benzodiazepines Scrn Negative (NEGATIVE) U Oth Cocaine Metabols Negative (NEGATIVE) U Cannabinoids Screen Positive H (NEGATIVE) Alcohol, Quantitative (0-10) mg/dl 07/23/17 07/23/17 07/23/17 Range/Units 19:15 19:15 19:13 WBC 15.9 H (4.8-10.8) K/uL RBC 4.27 (3.80-5.20) Mil/uL Hgb 14.1 (11.0-16.0) g/dL Hct 40.8 (34.0-47.0) % MCV 95.5 (81.0-99.0) fL MCH 33.0 H (27.0-31.0) pg MCHC 34.5 (33.0-37.0) g/dL RDW 12.7 (11.5-14.5) % Plt Count 249 (130-400) K/uL MPV 10.1 (7.2-11.7) fL Neut % (Auto) 78.4 H (50.0-75.0) % Lymph % (Auto) 11.6 L (20.0-40.0) % [place] % (Auto) 5.0 (0.0-10.0) % Eos % (Auto) 2.8 (0.0-4.0) % Baso % (Auto) 2.2 H (0.0-2.0) % Neut # (Auto) 12.5 H (1.8-7.0) K/uL Lymph # (Auto) 1.8 (1.0-4.3) K/uL [place] # (Auto) 0.8 (0.0-0.8) K/uL Eos # (Auto) 0.4 (0.0-0.7) K/uL Baso # (Auto) 0.3 H (0.0-0.2) K/uL Puncture Site pCO2 (35-45) mm/Hg pO2 (80-100) mm/Hg HCO3 (21-28) mmol/L ABG pH (7.35-7.45) ABG Total CO2 (22-28) mmol/L ABG O2 Saturation (95-98) % ABG Base Excess (-2.0-3.0) mmol/L ABG Hemoglobin (11.7-17.4) g/dL ABG Carboxyhemoglobin (0.5-1.5) % POC ABG HHb (Measured) (0.0-5.0) % ABG Methemoglobin (0.0-3.0) % Isaías Test A-a O2 Difference mm/Hg Respiratory Index Hgb O2 Saturation (95.0-98.0) % FiO2 % Sodium 132 (132-148) mmol/L Potassium 3.9 (3.6-5.2) mmol/L Chloride 94 L (98-107) mmol/L Carbon Dioxide 25 (22-30) mmol/L Anion Gap 17 (10-20) BUN 22 H (7-17) mg/dL Creatinine 1.1 (0.7-1.2) mg/dL Est GFR ( Amer) > 60 Est GFR (Non-Af Amer) 53 POC Glucose (mg/dL) (65-110) mg/dL Random Glucose 422 H* D (65-105) mg/dL Calcium 9.5 (8.6-10.4) mg/dl Phosphorus (2.5-4.5) mg/dL Magnesium 1.9 (1.6-2.3) mg/dL Total Bilirubin 0.4 (0.2-1.3) mg/dL AST 17 (14-36) U/L ALT 25 (9-52) U/L Alkaline Phosphatase 87 (38-126) U/L Total Protein 7.8 (6.3-8.3) g/dL Albumin 4.0 (3.5-5.0) g/dL Globulin 3.8 (2.2-3.9) gm/dL Albumin/Globulin Ratio 1.1 (1.0-2.1) Urine Color (YELLOW) Urine Clarity (Clear) Urine pH (5.0-8.0) Ur Specific [place] (1.003-1.030) Urine Protein (NEGATIVE) mg/dL Urine Glucose (UA) (Normal) mg/dL Urine Ketones (NEGATIVE) mg/dL Urine Blood (NEGATIVE) Urine Nitrate (NEGATIVE) Urine Bilirubin (NEGATIVE) Urine Urobilinogen (0.2-1.0) mg/dL Ur Leukocyte Esterase (Negative) Zach/uL Urine WBC (Auto) (0-5) /hpf Urine RBC (Auto) (0-3) /hpf Ur Squamous Epith Cells (0-5) /hpf Urine Bacteria (<OCC) Urine HCG, Qual (NEGATIVE) Salicylates < 1.0 mg/dL 1 Urine Opiates Screen (NEGATIVE) Urine Methadone Screen (NEGATIVE) Acetaminophen < 10.0 L (10.0-30.0) ug/mL Ur Barbiturates Screen (NEGATIVE) Ur Phencyclidine Scrn (NEGATIVE) Ur Amphetamines Screen (NEGATIVE) U Benzodiazepines Scrn (NEGATIVE) U Oth Cocaine Metabols (NEGATIVE) U Cannabinoids Screen (NEGATIVE) Alcohol, Quantitative 83 H (0-10) mg/dl 07/23/17 Range/Units 18:14 WBC (4.8-10.8) K/uL RBC (3.80-5.20) Mil/uL Hgb (11.0-16.0) g/dL Hct (34.0-47.0) % MCV (81.0-99.0) fL MCH (27.0-31.0) pg MCHC (33.0-37.0) g/dL RDW (11.5-14.5) % Plt Count (130-400) K/uL MPV (7.2-11.7) fL Neut % (Auto) (50.0-75.0) % Lymph % (Auto) (20.0-40.0) % [place] % (Auto) (0.0-10.0) % Eos % (Auto) (0.0-4.0) % Baso % (Auto) (0.0-2.0) % Neut # (Auto) (1.8-7.0) K/uL Lymph # (Auto) (1.0-4.3) K/uL [place] # (Auto) (0.0-0.8) K/uL Eos # (Auto) (0.0-0.7) K/uL Baso # (Auto) (0.0-0.2) K/uL Puncture Site pCO2 (35-45) mm/Hg pO2 (80-100) mm/Hg HCO3 (21-28) mmol/L ABG pH (7.35-7.45) ABG Total CO2 (22-28) mmol/L ABG O2 Saturation (95-98) % ABG Base Excess (-2.0-3.0) mmol/L ABG Hemoglobin (11.7-17.4) g/dL ABG Carboxyhemoglobin (0.5-1.5) % POC ABG HHb (Measured) (0.0-5.0) % ABG Methemoglobin (0.0-3.0) % Isaías Test A-a O2 Difference mm/Hg Respiratory Index Hgb O2 Saturation (95.0-98.0) % FiO2 % Sodium (132-148) mmol/L Potassium (3.6-5.2) mmol/L Chloride (98-107) mmol/L Carbon Dioxide (22-30) mmol/L Anion Gap (10-20) BUN (7-17) mg/dL Creatinine (0.7-1.2) mg/dL Est GFR ( Amer) Est GFR (Non-Af Amer) POC Glucose (mg/dL) 405 H* (65-110) mg/dL Random Glucose (65-105) mg/dL Calcium (8.6-10.4) mg/dl Phosphorus (2.5-4.5) mg/dL Magnesium (1.6-2.3) mg/dL Total Bilirubin (0.2-1.3) mg/dL AST (14-36) U/L ALT (9-52) U/L Alkaline Phosphatase (38-126) U/L Total Protein (6.3-8.3) g/dL Albumin (3.5-5.0) g/dL Globulin (2.2-3.9) gm/dL Albumin/Globulin Ratio (1.0-2.1) Urine Color (YELLOW) Urine Clarity (Clear) Urine pH (5.0-8.0) Ur Specific [place] (1.003-1.030) Urine Protein (NEGATIVE) mg/dL Urine Glucose (UA) (Normal) mg/dL Urine Ketones (NEGATIVE) mg/dL Urine Blood (NEGATIVE) Urine Nitrate (NEGATIVE) Urine Bilirubin (NEGATIVE) Urine Urobilinogen (0.2-1.0) mg/dL Ur Leukocyte Esterase (Negative) Zach/uL Urine WBC (Auto) (0-5) /hpf Urine RBC (Auto) (0-3) /hpf Ur Squamous Epith Cells (0-5) /hpf Urine Bacteria (<OCC) Urine HCG, Qual (NEGATIVE) Salicylates mg/dL 1 Urine Opiates Screen (NEGATIVE) Urine Methadone Screen (NEGATIVE) Acetaminophen (10.0-30.0) ug/mL Ur Barbiturates Screen (NEGATIVE) Ur Phencyclidine Scrn (NEGATIVE) Ur Amphetamines Screen (NEGATIVE) U Benzodiazepines Scrn (NEGATIVE) U Oth Cocaine Metabols (NEGATIVE) U Cannabinoids Screen (NEGATIVE) Alcohol, Quantitative (0-10) mg/dl Laboratory Results - last 24 hr 07/23/17 07/23/17 07/23/17 18:14 19:13 19:15 WBC 15.9 H RBC 4.27 Hgb 14.1 Hct 40.8 MCV 95.5 MCH 33.0 H MCHC 34.5 RDW 12.7 Plt Count 249 MPV 10.1 Neut % (Auto) 78.4 H Lymph % (Auto) 11.6 L [place] % (Auto) 5.0 Eos % (Auto) 2.8 Baso % (Auto) 2.2 H Neut # (Auto) 12.5 H Lymph # (Auto) 1.8 [place] # (Auto) 0.8 Eos # (Auto) 0.4 Baso # (Auto) 0.3 H Puncture Site pCO2 pO2 HCO3 ABG pH ABG Total CO2 ABG O2 Saturation ABG Base Excess ABG Hemoglobin ABG Carboxyhemoglobin POC ABG HHb (Measured) ABG Methemoglobin Isaías Test A-a O2 Difference Respiratory Index Hgb O2 Saturation FiO2 Sodium 132 Potassium 3.9 Chloride 94 L Carbon Dioxide 25 Anion Gap 17 BUN 22 H Creatinine 1.1 Est GFR ( Amer) > 60 Est GFR (Non-Af Amer) 53 POC Glucose (mg/dL) 405 H* Random Glucose 422 H* D Calcium 9.5 Phosphorus Magnesium 1.9 Total Bilirubin 0.4 AST 17 ALT 25 Alkaline Phosphatase 87 Total Protein 7.8 Albumin 4.0 Globulin 3.8 Albumin/Globulin Ratio 1.1 Urine Color Urine Clarity Urine pH Ur Specific [place] Urine Protein Urine Glucose (UA) Urine Ketones Urine Blood Urine Nitrate Urine Bilirubin Urine Urobilinogen Ur Leukocyte Esterase Urine WBC (Auto) Urine RBC (Auto) Ur Squamous Epith Cells Urine Bacteria Urine HCG, Qual Salicylates Urine Opiates Screen Urine Methadone Screen Acetaminophen Ur Barbiturates Screen Ur Phencyclidine Scrn Ur Amphetamines Screen U Benzodiazepines Scrn U Oth Cocaine Metabols U Cannabinoids Screen Alcohol, Quantitative 83 H 07/23/17 07/23/17 07/23/17 19:15 20:00 20:00 WBC RBC Hgb Hct MCV MCH MCHC RDW Plt Count MPV Neut % (Auto) Lymph % (Auto) [place] % (Auto) Eos % (Auto) Baso % (Auto) Neut # (Auto) Lymph # (Auto) [place] # (Auto) Eos # (Auto) Baso # (Auto) Puncture Site pCO2 pO2 HCO3 ABG pH ABG Total CO2 ABG O2 Saturation ABG Base Excess ABG Hemoglobin ABG Carboxyhemoglobin POC ABG HHb (Measured) ABG Methemoglobin Isaías Test A-a O2 Difference Respiratory Index Hgb O2 Saturation FiO2 Sodium Potassium Chloride Carbon Dioxide Anion Gap BUN Creatinine Est GFR ( Amer) Est GFR (Non-Af Amer) POC Glucose (mg/dL) Random Glucose Calcium Phosphorus Magnesium Total Bilirubin AST ALT Alkaline Phosphatase Total Protein Albumin Globulin Albumin/Globulin Ratio Urine Color Straw Urine Clarity Clear Urine pH 6.0 Ur Specific [place] 1.010 Urine Protein 2+ H Urine Glucose (UA) 3+ H Urine Ketones Negative Urine Blood 1+ H Urine Nitrate Negative Urine Bilirubin Negative Urine Urobilinogen Normal Ur Leukocyte Esterase Neg Urine WBC (Auto) Urine RBC (Auto) 1 Ur Squamous Epith Cells 1 Urine Bacteria Rare Urine HCG, Qual Negative Salicylates < 1.0 Urine Opiates Screen Negative Urine Methadone Screen Negative Acetaminophen < 10.0 L Ur Barbiturates Screen Positive H Ur Phencyclidine Scrn Negative Ur Amphetamines Screen Negative U Benzodiazepines Scrn Negative U Oth Cocaine Metabols Negative U Cannabinoids Screen Positive H Alcohol, Quantitative 07/23/17 07/23/17 07/24/17 22:23 22:41 03:51 WBC RBC Hgb Hct MCV MCH MCHC RDW Plt Count MPV Neut % (Auto) Lymph % (Auto) [place] % (Auto) Eos % (Auto) Baso % (Auto) Neut # (Auto) Lymph # (Auto) [place] # (Auto) Eos # (Auto) Baso # (Auto) Puncture Site Rr pCO2 40 pO2 86 HCO3 23.2 ABG pH 7.37 ABG Total CO2 24.3 ABG O2 Saturation 98.2 H ABG Base Excess -2.0 ABG Hemoglobin 12.3 ABG Carboxyhemoglobin 4.7 H POC ABG HHb (Measured) 1.7 ABG Methemoglobin 1.5 Isaías Test Po A-a O2 Difference 14.0 Respiratory Index 0.2 Hgb O2 Saturation 92.2 L FiO2 21.0 Sodium Potassium Chloride Carbon Dioxide Anion Gap BUN Creatinine Est GFR ( Amer) Est GFR (Non-Af Amer) POC Glucose (mg/dL) 230 H 136 H Random Glucose Calcium Phosphorus Magnesium Total Bilirubin AST ALT Alkaline Phosphatase Total Protein Albumin Globulin Albumin/Globulin Ratio Urine Color Urine Clarity Urine pH Ur Specific [place] Urine Protein Urine Glucose (UA) Urine Ketones Urine Blood Urine Nitrate Urine Bilirubin Urine Urobilinogen Ur Leukocyte Esterase Urine WBC (Auto) Urine RBC (Auto) Ur Squamous Epith Cells Urine Bacteria Urine HCG, Qual Salicylates Urine Opiates Screen Urine Methadone Screen Acetaminophen Ur Barbiturates Screen Ur Phencyclidine Scrn Ur Amphetamines Screen U Benzodiazepines Scrn U Oth Cocaine Metabols U Cannabinoids Screen Alcohol, Quantitative 07/24/17 07/24/17 07/24/17 05:10 06:23 06:24 WBC 15.6 H RBC 3.62 L Hgb 12.0 D Hct 34.3 MCV 94.9 MCH 33.1 H MCHC 34.9 RDW 12.7 Plt Count 203 MPV 9.9 Neut % (Auto) 61.4 Lymph % (Auto) 25.6 [place] % (Auto) 6.7 Eos % (Auto) 5.5 H Baso % (Auto) 0.8 Neut # (Auto) 9.6 H Lymph # (Auto) 4.0 [place] # (Auto) 1.0 H Eos # (Auto) 0.9 H Baso # (Auto) 0.1 Puncture Site Rr pCO2 38 pO2 95 HCO3 24.0 ABG pH 7.40 ABG Total CO2 24.7 ABG O2 Saturation 98.2 H ABG Base Excess -1.1 ABG Hemoglobin 11.9 ABG Carboxyhemoglobin 3.0 H POC ABG HHb (Measured) 1.7 ABG Methemoglobin 0.9 Isaías Test Pos A-a O2 Difference 7.0 Respiratory Index 0.1 Hgb O2 Saturation 94.4 L FiO2 21.0 Sodium 133 Potassium 3.9 Chloride 103 Carbon Dioxide 23 Anion Gap 11 BUN 16 Creatinine 0.7 Est GFR ( Amer) > 60 Est GFR (Non-Af Amer) > 60 POC Glucose (mg/dL) Random Glucose 167 H Calcium 7.4 L Phosphorus 3.3 Magnesium 1.6 Total Bilirubin 0.5 AST 14 ALT 20 Alkaline Phosphatase 64 Total Protein 6.0 L Albumin 2.8 L D Globulin 3.1 Albumin/Globulin Ratio 0.9 L Urine Color Urine Clarity Urine pH Ur Specific [place] Urine Protein Urine Glucose (UA) Urine Ketones Urine Blood Urine Nitrate Urine Bilirubin Urine Urobilinogen Ur Leukocyte Esterase Urine WBC (Auto) Urine RBC (Auto) Ur Squamous Epith Cells Urine Bacteria Urine HCG, Qual Salicylates Urine Opiates Screen Urine Methadone Screen Acetaminophen Ur Barbiturates Screen Ur Phencyclidine Scrn Ur Amphetamines Screen U Benzodiazepines Scrn U Oth Cocaine Metabols U Cannabinoids Screen Alcohol, Quantitative 07/24/17 07/24/17 07/24/17 06:24 08:22 11:24 WBC RBC Hgb Hct MCV MCH MCHC RDW Plt Count MPV Neut % (Auto) Lymph % (Auto) [place] % (Auto) Eos % (Auto) Baso % (Auto) Neut # (Auto) Lymph # (Auto) [place] # (Auto) Eos # (Auto) Baso # (Auto) Puncture Site pCO2 pO2 HCO3 ABG pH ABG Total CO2 ABG O2 Saturation ABG Base Excess ABG Hemoglobin ABG Carboxyhemoglobin POC ABG HHb (Measured) ABG Methemoglobin Isaías Test A-a O2 Difference Respiratory Index Hgb O2 Saturation FiO2 Sodium Potassium Chloride Carbon Dioxide Anion Gap BUN Creatinine Est GFR ( Amer) Est GFR (Non-Af Amer) POC Glucose (mg/dL) 175 H 183 H Random Glucose Calcium Phosphorus Magnesium Total Bilirubin AST ALT Alkaline Phosphatase Total Protein Albumin Globulin Albumin/Globulin Ratio Urine Color Yellow Urine Clarity Hazy Urine pH 6.0 Ur Specific [place] 1.014 Urine Protein 3+ H Urine Glucose (UA) 3+ H Urine Ketones Negative Urine Blood Negative Urine Nitrate Negative Urine Bilirubin Negative Urine Urobilinogen Normal Ur Leukocyte Esterase Neg Urine WBC (Auto) 1 Urine RBC (Auto) 1 Ur Squamous Epith Cells 13 H Urine Bacteria Rare Urine HCG, Qual Salicylates Urine Opiates Screen Urine Methadone Screen Acetaminophen Ur Barbiturates Screen Ur Phencyclidine Scrn Ur Amphetamines Screen U Benzodiazepines Scrn U Oth Cocaine Metabols U Cannabinoids Screen Alcohol, Quantitative 07/24/17 16:24 WBC RBC Hgb Hct MCV MCH MCHC RDW Plt Count MPV Neut % (Auto) Lymph % (Auto) [place] % (Auto) Eos % (Auto) Baso % (Auto) Neut # (Auto) Lymph # (Auto) [place] # (Auto) Eos # (Auto) Baso # (Auto) Puncture Site pCO2 pO2 HCO3 ABG pH ABG Total CO2 ABG O2 Saturation ABG Base Excess ABG Hemoglobin ABG Carboxyhemoglobin POC ABG HHb (Measured) ABG Methemoglobin Isaías Test A-a O2 Difference Respiratory Index Hgb O2 Saturation FiO2 Sodium Potassium Chloride Carbon Dioxide Anion Gap BUN Creatinine Est GFR ( Amer) Est GFR (Non-Af Amer) POC Glucose (mg/dL) 188 H Random Glucose Calcium Phosphorus Magnesium Total Bilirubin AST ALT Alkaline Phosphatase Total Protein Albumin Globulin Albumin/Globulin Ratio Urine Color Urine Clarity Urine pH Ur Specific Dolores Urine Protein Urine Glucose (UA) Urine Ketones Urine Blood Urine Nitrate Urine Bilirubin Urine Urobilinogen Ur Leukocyte Esterase Urine WBC (Auto) Urine RBC (Auto) Ur Squamous Epith Cells Urine Bacteria Urine HCG, Qual Salicylates Urine Opiates Screen Urine Methadone Screen Acetaminophen Ur Barbiturates Screen Ur Phencyclidine Scrn Ur Amphetamines Screen U Benzodiazepines Scrn U Oth Cocaine Metabols U Cannabinoids Screen Alcohol, Quantitative EKG/Cardiology Studies: Cardiology / EKG Studies 07/23/17 18:27 ELECTROCARDIOGRAM Stat Comment: Mode Of Transportation: BED Reason For Exam: Overdose 07/23/17 23:08 EKG [ELECTROCARDIOGRAM] Stat Comment: Mode Of Transportation: Reason For Exam: Repeat Critical Care Progress Note - Nutrition Nutrition: Nutrition Category Date Time Status Consistent Carbohydrate [DIET] Diets 07/23/17 Dinner Active Attending/Attestation - Attestation I have personally seen and examined this patient.: Yes I have fully participated in the care of the patient.: Yes I have reviewed all pertinent clinical information: Yes Notes (Text): 07/24/17 17:17 patient seen and examined in the intensive care unit. Case discussed with staff in the morning. 47-year-old female with bipolar disorder, depression and seizure disorder was admitted with phenobarbital overdose patient evaluated by psychiatry continue one-to-one observation Continue to monitor in ICU
--- NOTE | 2017-07-24 16:24 | CARD ---
APPROVED REPORT EKG Measurement Heart [id number] <Conclusion> Normal sinus rhythm Normal ECG
--- NOTE | 2017-07-24 16:27 | CARD ---
APPROVED REPORT EKG Measurement Heart [id number] <Conclusion> Sinus tachycardia Otherwise normal ECG
--- NOTE | 2017-07-24 22:54 | CP.PCM.PN ---
Subjective - Date & Time of Evaluation Date of Evaluation: 07/24/17 Time of Evaluation: 18:40 - Subjective Subjective: Patient seen and examined. Patient extremely agitated this morning - patient wanted to leave AMA, ripped out her IV, [facility] was called and psychiatrist was called down who saw patient and convinced patient to stay 1 more day. Objective - Vital Signs/Intake and Output Vital Signs (last 24 hours): Temp Pulse Resp BP Pulse Ox 97.5 F L 78 14 118/70 98 07/24/17 20:00 07/24/17 22:00 07/24/17 22:00 07/24/17 22:02 07/24/17 22:00 Intake and Output: 07/24/17 07/25/17 18:59 06:59 Intake Total 1800 740 Output Total 500 300 Balance 1300 440 - Medications Medications: Current Medications Amitriptyline HCl (Elavil) 25 mg PO HS [facility] Last Admin: 07/24/17 21:40 Dose: 25 mg Buprenorphine HCl (Subutex) 4 mg SL DAILY [facility] Last Admin: 07/24/17 11:00 Dose: 4 mg Clonazepam (Klonopin) 1 mg PO TID [facility] Last Admin: 07/24/17 18:09 Dose: 1 mg Docusate Sodium (Colace) 100 mg PO BID [facility] Last Admin: 07/24/17 18:09 Dose: 100 mg Enoxaparin Sodium (Lovenox) 40 mg SC DAILY [facility] Last Admin: 07/24/17 11:00 Dose: 40 mg Haloperidol (Haldol) 5 mg PO Q1H PRN PRN Reason: agitation max 4x/24h Sodium Chloride (Sodium Chloride 0.45%) 1,000 mls @ 100 mls/hr IV .Q10H [facility] Last Admin: 07/24/17 19:22 Dose: 100 mls/hr Insulin Human Regular (Novolin R) 0 unit SC ACHS [facility] PRN Reason: Protocol Last Admin: 07/24/17 21:27 Dose: Not Given Magnesium Citrate (Citrate Of Mag) 300 ml PO ONCE PRN PRN Reason: Constipation Pantoprazole Sodium (Protonix Inj) 40 mg IVP DAILY [facility] Last Admin: 07/24/17 12:30 Dose: 40 mg Pneumococcal Polyvalent Vaccine (Pneumovax 23 Vaccine) 0.5 ml IM .ONCE ONE Stop: 07/26/17 10:01 Quetiapine Fumarate (Seroquel) 300 mg PO HS [facility] Last Admin: 07/24/17 21:39 Dose: 300 mg - Labs Labs: 07/24/17 06:24 07/24/17 06:23 - Constitutional Appears: No Acute Distress, Agitated - Head Exam Head Exam: ATRAUMATIC, NORMAL INSPECTION, NORMOCEPHALIC - Respiratory Exam Respiratory Exam: Clear to Ausculation Bilateral, NORMAL BREATHING PATTERN - Cardiovascular Exam Cardiovascular Exam: REGULAR RHYTHM, +S1, +S2. absent: Murmur - GI/Abdominal Exam GI & Abdominal Exam: Soft, Normal Bowel Sounds. absent: Tenderness Assessment and Plan (1) Anxiety Status: Acute (2) Intentional phenobarbital overdose Assessment & Plan: PT is for detox and 1 o 1 psychiatry watch Status: Acute (3) Suicide attempt Status: Acute
[2017-07-25] MEDS: Sodium Chloride 0.45% 1,000 ML IV SCH (04:53)
[2017-07-25 06:42] LABS: BASO % 0.4 % (0.0-2.0); EOS # 0.7 K/uL (0.0-0.7); EOS % 5.4 % (0.0-4.0); HEMOGLOBIN 11.6 g/dL (11.0-16.0); LYMPH # 3.9 K/uL (1.0-4.3); LYMPH % 31.3 % (20.0-40.0); MEAN CORPUSCULAR HEMOGLOBIN 33.2 pg (27.0-31.0); MEAN CORPUSCULAR HGB CONC 34.6 g/dL (33.0-37.0); MONO # 0.8 K/uL (0.0-0.8); MONO % 6.7 % (0.0-10.0); NEUT # 6.9 K/uL (1.8-7.0); NEUT % 56.2 % (50.0-75.0); RBC 3.49 Mil/uL (3.80-5.20); RED CELL DISTRIBUTION WIDTH 12.7 % (11.5-14.5); WHITE BLOOD COUNT 12.3 K/uL (4.8-10.8)
[2017-07-25 07:06] LABS: ALB/GLOB RATIO 0.9 (1.0-2.1); ALBUMIN 2.7 g/dL (3.5-5.0); ALT/SGPT 22 U/L (9-52); AST/SGOT 15 U/L (14-36); BLOOD UREA NITROGEN 13 mg/dL (7-17); CALCIUM 7.3 mg/dl (8.6-10.4); GFR AFRICAN-AMERICAN > 60; GFR NON-AFRICAN AMERICAN > 60; MAGNESIUM 1.7 mg/dL (1.6-2.3)
[2017-07-25] MEDS: (Novolin R) Insulin Human Regular 100 units/ml vial SC SCH (08:20)
[2017-07-25 09:25] VITALS: TEMP 97.2; O2SAT 98
[2017-07-25] MEDS: Enoxaparin 40 mg Syringe SC SCH (09:39)
[2017-07-25] MEDS: Buprenorphine Hydrochloride 2 mg SL SCH (09:40)
--- NOTE | 2017-07-25 11:02 | PCM.PYCHPN ---
Psychiatric Progress Note - Psychiatric Progress Note Patient seen today, length of contact: 16 min Patient Chief Complaint: "I'm better" Problems Identified/Issues Discussed: The patient is seen, chart reviewed and case discussed. She looks better than yesterday; calmer, cooperative and denies suicidal ideation. She is happy that her agreed with the plan to not bring drinking friends to their home and on top of that he read an appointment from [facility], our outpatient program, where she will go a history of going back to Dr. Frost. No manic or psychotic symptoms Future oriented No side effects reported from medications She is advised to decrease Klonopin to twice a day, Elavil to 25 mg and Ambien to 5 mg per day. She agreed Cleared for discharge by psychiatry Medication Change: No Medical Record Reviewed: Yes Mental Status Examination - Cognitive Function Orientation: Person, Place, Situation, Time Memory: Intact Attention: WNL Concentration: Poor Association: WNL Fund of Knowledge: Poor - Mood Mood: Anxious - Affect Affect: Constricted - Speech Speech: Appropriate - Formal Thought Process Formal Thought Process: No Impairment - Suicidal Ideation Suicidal Ideation: No - Homicidal Ideation Homicidal Ideation: No Goal/Treatment Plan - Goal/Treatment Plan Progress Toward Problem(s) and Goals/Treatment Plan: cleared for discharge by psychiatry Continue meds as described in HPI follow-up at [facility]
[2017-07-25 12:03] VITALS: BP 96/36; PULSE 99; RESP 17
--- NOTE | 2017-07-25 12:06 | CP.PCM.DIS ---
<Jose Cruz Benitez - Last Filed: 07/25/17 12:00> Provider - Provider Date of Admission: 07/23/17 21:44 Attending physician: Tico Oconnell MD Primary care physician: PMD: None Primary Hospital Attending: Dr Tico Oconnell Consults: Psychiatry: Dr Flores [employer] Technician: Dr Roth Time Spent in preparation of Discharge (in minutes): 35 Hospital Course - Lab Results Lab Results: Micro Results 07/24/17 03:13 Naris MRSA Culture (Admit) - Final MRSA NOT DETECTED Most Recent Lab Values WBC 12.3 K/uL (4.8-10.8) H 07/25/17 06:34 RBC 3.49 Mil/uL (3.80-5.20) L 07/25/17 06:34 Hgb 11.6 g/dL (11.0-16.0) 07/25/17 06:34 Hct 33.5 % (34.0-47.0) L 07/25/17 06:34 MCV 96.0 fL (81.0-99.0) 07/25/17 06:34 MCH 33.2 pg (27.0-31.0) H 07/25/17 06:34 MCHC 34.6 g/dL (33.0-37.0) 07/25/17 06:34 RDW 12.7 % (11.5-14.5) 07/25/17 06:34 Plt Count 202 K/uL (130-400) 07/25/17 06:34 MPV 10.0 fL (7.2-11.7) 07/25/17 06:34 Neut % (Auto) 56.2 % (50.0-75.0) 07/25/17 06:34 Lymph % (Auto) 31.3 % (20.0-40.0) 07/25/17 06:34 [place] % (Auto) 6.7 % (0.0-10.0) 07/25/17 06:34 Eos % (Auto) 5.4 % (0.0-4.0) H 07/25/17 06:34 Baso % (Auto) 0.4 % (0.0-2.0) 07/25/17 06:34 Neut # (Auto) 6.9 K/uL (1.8-7.0) 07/25/17 06:34 Lymph # (Auto) 3.9 K/uL (1.0-4.3) 07/25/17 06:34 [place] # (Auto) 0.8 K/uL (0.0-0.8) 07/25/17 06:34 Eos # (Auto) 0.7 K/uL (0.0-0.7) 07/25/17 06:34 Baso # (Auto) 0.0 K/uL (0.0-0.2) 07/25/17 06:34 Puncture Site Rr 07/24/17 05:10 pCO2 38 mm/Hg (35-45) 07/24/17 05:10 pO2 95 mm/Hg (80-100) 07/24/17 05:10 HCO3 24.0 mmol/L (21-28) 07/24/17 05:10 ABG pH 7.40 (7.35-7.45) 07/24/17 05:10 ABG Total CO2 24.7 mmol/L (22-28) 07/24/17 05:10 ABG O2 Saturation 98.2 % (95-98) H 07/24/17 05:10 ABG Base Excess -1.1 mmol/L (-2.0-3.0) 07/24/17 05:10 ABG Hemoglobin 11.9 g/dL (11.7-17.4) 07/24/17 05:10 ABG Carboxyhemoglobin 3.0 % (0.5-1.5) H 07/24/17 05:10 POC ABG HHb (Measured) 1.7 % (0.0-5.0) 07/24/17 05:10 ABG Methemoglobin 0.9 % (0.0-3.0) 07/24/17 05:10 Isaías Test Pos 07/24/17 05:10 A-a O2 Difference 7.0 mm/Hg 07/24/17 05:10 Respiratory Index 0.1 07/24/17 05:10 Hgb O2 Saturation 94.4 % (95.0-98.0) L 07/24/17 05:10 FiO2 21.0 % 07/24/17 05:10 Sodium 130 mmol/L (132-148) L 07/25/17 06:32 Potassium 3.8 mmol/L (3.6-5.2) 07/25/17 06:32 Chloride 99 mmol/L (98-107) 07/25/17 06:32 Carbon Dioxide 24 mmol/L (22-30) 07/25/17 06:32 Anion Gap 10 (10-20) 07/25/17 06:32 BUN 13 mg/dL (7-17) 07/25/17 06:32 Creatinine 0.7 mg/dL (0.7-1.2) 07/25/17 06:32 Est GFR ( Amer) > 60 07/25/17 06:32 Est GFR (Non-Af Amer) > 60 07/25/17 06:32 POC Glucose (mg/dL) 203 mg/dL (65-110) H 07/25/17 07:11 Random Glucose 223 mg/dL (65-105) H 07/25/17 06:32 Calcium 7.3 mg/dl (8.6-10.4) L 07/25/17 06:32 Phosphorus 2.6 mg/dL (2.5-4.5) 07/25/17 06:32 Magnesium 1.7 mg/dL (1.6-2.3) 07/25/17 06:32 Total Bilirubin 0.3 mg/dL (0.2-1.3) 07/25/17 06:32 AST 15 U/L (14-36) 07/25/17 06:32 ALT 22 U/L (9-52) 07/25/17 06:32 Alkaline Phosphatase 69 U/L (38-126) 07/25/17 06:32 Total Protein 5.7 g/dL (6.3-8.3) L 07/25/17 06:32 Albumin 2.7 g/dL (3.5-5.0) L 07/25/17 06:32 Globulin 3.0 gm/dL (2.2-3.9) 07/25/17 06:32 Albumin/Globulin Ratio 0.9 (1.0-2.1) L 07/25/17 06:32 Urine Color Yellow (YELLOW) 07/24/17 06:24 Urine Clarity Hazy (Clear) 07/24/17 06:24 Urine pH 6.0 (5.0-8.0) 07/24/17 06:24 Ur Specific Madelia 1.014 (1.003-1.030) 07/24/17 06:24 Urine Protein 3+ mg/dL (NEGATIVE) H 07/24/17 06:24 Urine Glucose (UA) 3+ mg/dL (Normal) H 07/24/17 06:24 Urine Ketones Negative mg/dL (NEGATIVE) 07/24/17 06:24 Urine Blood Negative (NEGATIVE) 07/24/17 06:24 Urine Nitrate Negative (NEGATIVE) 07/24/17 06:24 Urine Bilirubin Negative (NEGATIVE) 07/24/17 06:24 Urine Urobilinogen Normal mg/dL (0.2-1.0) 07/24/17 06:24 Ur Leukocyte Esterase Neg Zach/uL (Negative) 07/24/17 06:24 Urine WBC (Auto) 1 /hpf (0-5) 07/24/17 06:24 Urine RBC (Auto) 1 /hpf (0-3) 07/24/17 06:24 Ur Squamous Epith Cells 13 /hpf (0-5) H 07/24/17 06:24 Urine Bacteria Rare (<OCC) 07/24/17 06:24 Urine HCG, Qual Negative (NEGATIVE) 07/23/17 20:00 Salicylates < 1.0 mg/dL 1 07/23/17 19:15 Urine Opiates Screen Negative (NEGATIVE) 07/23/17 20:00 Urine Methadone Screen Negative (NEGATIVE) 07/23/17 20:00 Acetaminophen < 10.0 ug/mL (10.0-30.0) L 07/23/17 19:15 Ur Barbiturates Screen Positive (NEGATIVE) H 07/23/17 20:00 Ur Phencyclidine Scrn Negative (NEGATIVE) 07/23/17 20:00 Ur Amphetamines Screen Negative (NEGATIVE) 07/23/17 20:00 Phenobarbital 50.7 mg/L (15.0-40.0) H 07/23/17 19:15 U Benzodiazepines Scrn Negative (NEGATIVE) 07/23/17 20:00 U Oth Cocaine Metabols Negative (NEGATIVE) 07/23/17 20:00 U Cannabinoids Screen Positive (NEGATIVE) H 07/23/17 20:00 Alcohol, Quantitative 83 mg/dl (0-10) H 07/23/17 19:15 - Hospital Course Hospital Course: HPI: 47 y/o female with Bipolar Disorder, Depression, Diabetes, HTN, Seizures brought to ER after ingestion of 90 tabs of 32.4mg Phenobarbital. She also took Alcohol, Marijuana. Pt drowsy but arousable. Poison control called by ER and recommended observation. Patient very drowsy unable to get history, ROS. Hospital Course: 47 F with PMHx Bipolar Disorder, Depression, Diabetes, HTN, Seizures, brought to ER after ingestion of 90 tabs of 32.4mg Phenobarbital. UDS also showed alcohol and marijuana. Psych: Phenobarbital overdose Poison control called by ER and recommended observation. UDS also (+) for alcohol and marijuana Extremely agitated, ripped out IV on 07/24/17, wanted to leave AMA, [facility] called - Dr Hdz convinced patient to stay 1 more day all vitals NORMAL Buprenorphine 4mg SL QD Klonopin 1mg PO TID Seroquel 300mg PO HS 1:[address] Hdz on board Endo: DM Accuchecks with low dose insulin coverage 07/25/17: Patient left hospital Against Medical Advice even though she was advised to stay and keep seeing psychiatrist. She was made aware of risks of leaving AMA. She states she will see a psychiatrist outpatient. Discharge Exam - Head Exam Head Exam: ATRAUMATIC, NORMAL INSPECTION, NORMOCEPHALIC - Additional Findings Additional findings: - Constitutional Appears: No Acute Distress Additional comments: Not agitated today, very calm and cooperative - Head Exam Head Exam: ATRAUMATIC, NORMAL INSPECTION, NORMOCEPHALIC - Eye Exam Eye Exam: Normal appearance, PERRL. absent: Conjunctival injection, Periorbital swelling - ENT Exam ENT Exam: Mucous Membranes Moist - Neck Exam Neck exam: Positive for: Normal Inspection - Respiratory Exam Respiratory Exam: Clear to Auscultation Bilateral, NORMAL BREATHING PATTERN - Cardiovascular Exam Cardiovascular Exam: REGULAR RHYTHM - GI/Abdominal Exam GI & Abdominal Exam: Normal Bowel Sounds, Soft. absent: Tenderness - Extremities Exam Extremities exam: Positive for: normal inspection. Negative for: pedal edema, tenderness - Neurological Exam Neurological exam: AAOx3 - Skin Skin Exam: Normal Color, Warm Discharge Plan - Follow Up Plan Condition: IMPROVED Disposition: AGAINST MEDICAL ADVICE Instructions: Constipation (DC), Constipation (GEN) Additional Instructions: Patient left Against Medical Advice <Latef,Donny M - Last Filed: 07/25/17 16:34> Provider - Provider Date of Admission: 07/23/17 21:44 Attending physician: Tico Oconnell MD Hospital Course - Lab Results Lab Results: Micro Results 07/24/17 03:13 Naris MRSA Culture (Admit) - Final MRSA NOT DETECTED Most Recent Lab Values WBC 12.3 K/uL (4.8-10.8) H 07/25/17 06:34 RBC 3.49 Mil/uL (3.80-5.20) L 07/25/17 06:34 Hgb 11.6 g/dL (11.0-16.0) 07/25/17 06:34 Hct 33.5 % (34.0-47.0) L 07/25/17 06:34 MCV 96.0 fL (81.0-99.0) 07/25/17 06:34 MCH 33.2 pg (27.0-31.0) H 07/25/17 06:34 MCHC 34.6 g/dL (33.0-37.0) 07/25/17 06:34 RDW 12.7 % (11.5-14.5) 07/25/17 06:34 Plt Count 202 K/uL (130-400) 07/25/17 06:34 MPV 10.0 fL (7.2-11.7) 07/25/17 06:34 Neut % (Auto) 56.2 % (50.0-75.0) 07/25/17 06:34 Lymph % (Auto) 31.3 % (20.0-40.0) 07/25/17 06:34 [place] % (Auto) 6.7 % (0.0-10.0) 07/25/17 06:34 Eos % (Auto) 5.4 % (0.0-4.0) H 07/25/17 06:34 Baso % (Auto) 0.4 % (0.0-2.0) 07/25/17 06:34 Neut # (Auto) 6.9 K/uL (1.8-7.0) 07/25/17 06:34 Lymph # (Auto) 3.9 K/uL (1.0-4.3) 07/25/17 06:34 [place] # (Auto) 0.8 K/uL (0.0-0.8) 07/25/17 06:34 Eos # (Auto) 0.7 K/uL (0.0-0.7) 07/25/17 06:34 Baso # (Auto) 0.0 K/uL (0.0-0.2) 07/25/17 06:34 Puncture Site Rr 07/24/17 05:10 pCO2 38 mm/Hg (35-45) 07/24/17 05:10 pO2 95 mm/Hg (80-100) 07/24/17 05:10 HCO3 24.0 mmol/L (21-28) 07/24/17 05:10 ABG pH 7.40 (7.35-7.45) 07/24/17 05:10 ABG Total CO2 24.7 mmol/L (22-28) 07/24/17 05:10 ABG O2 Saturation 98.2 % (95-98) H 07/24/17 05:10 ABG Base Excess -1.1 mmol/L (-2.0-3.0) 07/24/17 05:10 ABG Hemoglobin 11.9 g/dL (11.7-17.4) 07/24/17 05:10 ABG Carboxyhemoglobin 3.0 % (0.5-1.5) H 07/24/17 05:10 POC ABG HHb (Measured) 1.7 % (0.0-5.0) 07/24/17 05:10 ABG Methemoglobin 0.9 % (0.0-3.0) 07/24/17 05:10 Isaías Test Pos 07/24/17 05:10 A-a O2 Difference 7.0 mm/Hg 07/24/17 05:10 Respiratory Index 0.1 07/24/17 05:10 Hgb O2 Saturation 94.4 % (95.0-98.0) L 07/24/17 05:10 FiO2 21.0 % 07/24/17 05:10 Sodium 130 mmol/L (132-148) L 07/25/17 06:32 Potassium 3.8 mmol/L (3.6-5.2) 07/25/17 06:32 Chloride 99 mmol/L (98-107) 07/25/17 06:32 Carbon Dioxide 24 mmol/L (22-30) 07/25/17 06:32 Anion Gap 10 (10-20) 07/25/17 06:32 BUN 13 mg/dL (7-17) 07/25/17 06:32 Creatinine 0.7 mg/dL (0.7-1.2) 07/25/17 06:32 Est GFR ( Amer) > 60 07/25/17 06:32 Est GFR (Non-Af Amer) > 60 07/25/17 06:32 POC Glucose (mg/dL) 203 mg/dL (65-110) H 07/25/17 11:45 Random Glucose 223 mg/dL (65-105) H 07/25/17 06:32 Calcium 7.3 mg/dl (8.6-10.4) L 07/25/17 06:32 Phosphorus 2.6 mg/dL (2.5-4.5) 07/25/17 06:32 Magnesium 1.7 mg/dL (1.6-2.3) 07/25/17 06:32 Total Bilirubin 0.3 mg/dL (0.2-1.3) 07/25/17 06:32 AST 15 U/L (14-36) 07/25/17 06:32 ALT 22 U/L (9-52) 07/25/17 06:32 Alkaline Phosphatase 69 U/L (38-126) 07/25/17 06:32 Total Protein 5.7 g/dL (6.3-8.3) L 07/25/17 06:32 Albumin 2.7 g/dL (3.5-5.0) L 07/25/17 06:32 Globulin 3.0 gm/dL (2.2-3.9) 07/25/17 06:32 Albumin/Globulin Ratio 0.9 (1.0-2.1) L 07/25/17 06:32 Urine Color Yellow (YELLOW) 07/24/17 06:24 Urine Clarity Hazy (Clear) 07/24/17 06:24 Urine pH 6.0 (5.0-8.0) 07/24/17 06:24 Ur Specific [place] 1.014 (1.003-1.030) 07/24/17 06:24 Urine Protein 3+ mg/dL (NEGATIVE) H 07/24/17 06:24 Urine Glucose (UA) 3+ mg/dL (Normal) H 07/24/17 06:24 Urine Ketones Negative mg/dL (NEGATIVE) 07/24/17 06:24 Urine Blood Negative (NEGATIVE) 07/24/17 06:24 Urine Nitrate Negative (NEGATIVE) 07/24/17 06:24 Urine Bilirubin Negative (NEGATIVE) 07/24/17 06:24 Urine Urobilinogen Normal mg/dL (0.2-1.0) 07/24/17 06:24 Ur Leukocyte Esterase Neg Zach/uL (Negative) 07/24/17 06:24 Urine WBC (Auto) 1 /hpf (0-5) 07/24/17 06:24 Urine RBC (Auto) 1 /hpf (0-3) 07/24/17 06:24 Ur Squamous Epith Cells 13 /hpf (0-5) H 07/24/17 06:24 Urine Bacteria Rare (<OCC) 07/24/17 06:24 Urine HCG, Qual Negative (NEGATIVE) 07/23/17 20:00 Salicylates < 1.0 mg/dL 1 07/23/17 19:15 Urine Opiates Screen Negative (NEGATIVE) 07/23/17 20:00 Urine Methadone Screen Negative (NEGATIVE) 07/23/17 20:00 Acetaminophen < 10.0 ug/mL (10.0-30.0) L 07/23/17 19:15 Ur Barbiturates Screen Positive (NEGATIVE) H 07/23/17 20:00 Ur Phencyclidine Scrn Negative (NEGATIVE) 07/23/17 20:00 Ur Amphetamines Screen Negative (NEGATIVE) 07/23/17 20:00 Phenobarbital 50.7 mg/L (15.0-40.0) H 07/23/17 19:15 U Benzodiazepines Scrn Negative (NEGATIVE) 07/23/17 20:00 U Oth Cocaine Metabols Negative (NEGATIVE) 07/23/17 20:00 U Cannabinoids Screen Positive (NEGATIVE) H 07/23/17 20:00 Alcohol, Quantitative 83 mg/dl (0-10) H 07/23/17 19:15 Attending/Attestation - Attestation I have personally seen and examined this patient.: Yes I have fully participated in the care of the patient.: Yes I have reviewed all pertinent clinical information, including history, physical exam and plan: Yes Notes (Text): 07/25/17 16:34 Today: July The Patient was seen and examined at the bedside, Medical records reviewed, and management issues were discussed and formulated with the house staff. I have reviewed all the relevant clinical, laboratory, hemodynamic, radiographic data and medications Events reviewed Pain issues, skin care, head of the bed elevation, glycemic control were addressed. Agree with above resident's assessment and treatment plans of care as transcribed in Dr. Benitez note.
--- NOTE | 2017-07-25 22:43 | CP.PCM.DIS ---
Provider - Provider Date of Admission: 07/23/17 21:44 Attending physician: Tico Oconnell MD Time Spent in preparation of Discharge (in minutes): 4 Diagnosis - Discharge Diagnosis (1) Anxiety Status: Acute (2) Intentional phenobarbital overdose Status: Acute (3) Suicide attempt Status: Acute Hospital Course - Lab Results Lab Results: Micro Results 07/24/17 03:13 Naris MRSA Culture (Admit) - Final MRSA NOT DETECTED Most Recent Lab Values WBC 12.3 K/uL (4.8-10.8) H 07/25/17 06:34 RBC 3.49 Mil/uL (3.80-5.20) L 07/25/17 06:34 Hgb 11.6 g/dL (11.0-16.0) 07/25/17 06:34 Hct 33.5 % (34.0-47.0) L 07/25/17 06:34 MCV 96.0 fL (81.0-99.0) 07/25/17 06:34 MCH 33.2 pg (27.0-31.0) H 07/25/17 06:34 MCHC 34.6 g/dL (33.0-37.0) 07/25/17 06:34 RDW 12.7 % (11.5-14.5) 07/25/17 06:34 Plt Count 202 K/uL (130-400) 07/25/17 06:34 MPV 10.0 fL (7.2-11.7) 07/25/17 06:34 Neut % (Auto) 56.2 % (50.0-75.0) 07/25/17 06:34 Lymph % (Auto) 31.3 % (20.0-40.0) 07/25/17 06:34 Hickman % (Auto) 6.7 % (0.0-10.0) 07/25/17 06:34 Eos % (Auto) 5.4 % (0.0-4.0) H 07/25/17 06:34 Baso % (Auto) 0.4 % (0.0-2.0) 07/25/17 06:34 Neut # (Auto) 6.9 K/uL (1.8-7.0) 07/25/17 06:34 Lymph # (Auto) 3.9 K/uL (1.0-4.3) 07/25/17 06:34 Hickman # (Auto) 0.8 K/uL (0.0-0.8) 07/25/17 06:34 Eos # (Auto) 0.7 K/uL (0.0-0.7) 07/25/17 06:34 Baso # (Auto) 0.0 K/uL (0.0-0.2) 07/25/17 06:34 Puncture Site Rr 07/24/17 05:10 pCO2 38 mm/Hg (35-45) 07/24/17 05:10 pO2 95 mm/Hg (80-100) 07/24/17 05:10 HCO3 24.0 mmol/L (21-28) 07/24/17 05:10 ABG pH 7.40 (7.35-7.45) 07/24/17 05:10 ABG Total CO2 24.7 mmol/L (22-28) 07/24/17 05:10 ABG O2 Saturation 98.2 % (95-98) H 07/24/17 05:10 ABG Base Excess -1.1 mmol/L (-2.0-3.0) 07/24/17 05:10 ABG Hemoglobin 11.9 g/dL (11.7-17.4) 07/24/17 05:10 ABG Carboxyhemoglobin 3.0 % (0.5-1.5) H 07/24/17 05:10 POC ABG HHb (Measured) 1.7 % (0.0-5.0) 07/24/17 05:10 ABG Methemoglobin 0.9 % (0.0-3.0) 07/24/17 05:10 Isaías Test Pos 07/24/17 05:10 A-a O2 Difference 7.0 mm/Hg 07/24/17 05:10 Respiratory Index 0.1 07/24/17 05:10 Hgb O2 Saturation 94.4 % (95.0-98.0) L 07/24/17 05:10 FiO2 21.0 % 07/24/17 05:10 Sodium 130 mmol/L (132-148) L 07/25/17 06:32 Potassium 3.8 mmol/L (3.6-5.2) 02/15/18 06:32 Chloride 99 mmol/L (98-107) 07/25/17 06:32 Carbon Dioxide 24 mmol/L (22-30) 07/25/17 06:32 Anion Gap 10 (10-20) 07/25/17 06:32 BUN 13 mg/dL (7-17) 07/25/17 06:32 Creatinine 0.7 mg/dL (0.7-1.2) 07/25/17 06:32 Est GFR ( Amer) > 60 07/25/17 06:32 Est GFR (Non-Af Amer) > 60 07/25/17 06:32 POC Glucose (mg/dL) 203 mg/dL (65-110) H 07/25/17 11:45 Random Glucose 223 mg/dL (65-105) H 07/25/17 06:32 Calcium 7.3 mg/dl (8.6-10.4) L 07/25/17 06:32 Phosphorus 2.6 mg/dL (2.5-4.5) 07/25/17 06:32 Magnesium 1.7 mg/dL (1.6-2.3) 07/25/17 06:32 Total Bilirubin 0.3 mg/dL (0.2-1.3) 07/25/17 06:32 AST 15 U/L (14-36) 07/25/17 06:32 ALT 22 U/L (9-52) 07/25/17 06:32 Alkaline Phosphatase 69 U/L (38-126) 07/25/17 06:32 Total Protein 5.7 g/dL (6.3-8.3) L 07/25/17 06:32 Albumin 2.7 g/dL (3.5-5.0) L 07/25/17 06:32 Globulin 3.0 gm/dL (2.2-3.9) 07/25/17 06:32 Albumin/Globulin Ratio 0.9 (1.0-2.1) L 07/25/17 06:32 Urine Color Yellow (YELLOW) 07/24/17 06:24 Urine Clarity Hazy (Clear) 07/24/17 06:24 Urine pH 6.0 (5.0-8.0) 07/24/17 06:24 Ur Specific [place] 1.014 (1.003-1.030) 07/24/17 06:24 Urine Protein 3+ mg/dL (NEGATIVE) H 07/24/17 06:24 Urine Glucose (UA) 3+ mg/dL (Normal) H 07/24/17 06:24 Urine Ketones Negative mg/dL (NEGATIVE) 07/24/17 06:24 Urine Blood Negative (NEGATIVE) 07/24/17 06:24 Urine Nitrate Negative (NEGATIVE) 07/24/17 06:24 Urine Bilirubin Negative (NEGATIVE) 07/24/17 06:24 Urine Urobilinogen Normal mg/dL (0.2-1.0) 07/24/17 06:24 Ur Leukocyte Esterase Neg Zach/uL (Negative) 07/24/17 06:24 Urine WBC (Auto) 1 /hpf (0-5) 07/24/17 06:24 Urine RBC (Auto) 1 /hpf (0-3) 07/24/17 06:24 Ur Squamous Epith Cells 13 /hpf (0-5) H 07/24/17 06:24 Urine Bacteria Rare (<OCC) 07/24/17 06:24 Urine HCG, Qual Negative (NEGATIVE) 07/23/17 20:00 Salicylates < 1.0 mg/dL 1 07/23/17 19:15 Urine Opiates Screen Negative (NEGATIVE) 07/23/17 20:00 Urine Methadone Screen Negative (NEGATIVE) 07/23/17 20:00 Acetaminophen < 10.0 ug/mL (10.0-30.0) L 07/23/17 19:15 Ur Barbiturates Screen Positive (NEGATIVE) H 07/23/17 20:00 Ur Phencyclidine Scrn Negative (NEGATIVE) 07/23/17 20:00 Ur Amphetamines Screen Negative (NEGATIVE) 07/23/17 20:00 Phenobarbital 50.7 mg/L (15.0-40.0) H 07/23/17 19:15 U Benzodiazepines Scrn Negative (NEGATIVE) 07/23/17 20:00 U Oth Cocaine Metabols Negative (NEGATIVE) 07/23/17 20:00 U Cannabinoids Screen Positive (NEGATIVE) H 07/23/17 20:00 Alcohol, Quantitative 83 mg/dl (0-10) H 07/23/17 19:15 - Hospital Course Hospital Course: Hospital Course: HPI: 47 y/o female with Bipolar Disorder, Depression, Diabetes, HTN, Seizures brought to ER after ingestion of 90 tabs of 32.4mg Phenobarbital. She also took Alcohol, Marijuana. Pt drowsy but arousable. Poison control called by ER and recommended observation. Patient very drowsy unable to get history, ROS. Hospital Course: 47 F with PMHx Bipolar Disorder, Depression, Diabetes, HTN, Seizures, brought to ER after ingestion of 90 tabs of 32.4mg Phenobarbital. UDS also showed alcohol and marijuana. Psych: Phenobarbital overdose Poison control called by ER and recommended observation. UDS also (+) for alcohol and marijuana Extremely agitated, ripped out IV on 07/24/17, wanted to leave AMA, [facility] called - Dr Hdz convinced patient to stay 1 more day all vitals NORMAL Buprenorphine 4mg SL QD Klonopin 1mg PO TID Seroquel 300mg PO HS 1:[address] Hdz on board Endo: DM Accuchecks with low dose insulin coverage 07/25/17: Patient left hospital Against Medical Advice even though she was advised to stay and keep seeing psychiatrist. She was made aware of risks of leaving AMA. She states she will see a psychiatrist outpatient. Discharge Exam - Head Exam Head Exam: ATRAUMATIC, NORMAL INSPECTION, NORMOCEPHALIC - Additional Findings Additional findings: - Constitutional Appears: No Acute Distress Additional comments: Not agitated today, very calm and cooperative - Head Exam Head Exam: ATRAUMATIC, NORMAL INSPECTION, NORMOCEPHALIC - Eye Exam Eye Exam: Normal appearance, PERRL. absent: Conjunctival injection, Periorbital swelling - ENT Exam ENT Exam: Mucous Membranes Moist - Neck Exam Neck exam: Positive for: Normal Inspection - Respiratory Exam Respiratory Exam: Clear to Auscultation Bilateral, NORMAL BREATHING PATTERN - Cardiovascular Exam Cardiovascular Exam: REGULAR RHYTHM - GI/Abdominal Exam GI & Abdominal Exam: Normal Bowel Sounds, Soft. absent: Tenderness - Extremities Exam Extremities exam: Positive for: normal inspection. Negative for: pedal edema, tenderness - Neurological Exam Neurological exam: AAOx3 - Skin Skin Exam: Normal Color, Warm Discharge Exam - Head Exam Head Exam: ATRAUMATIC, NORMAL INSPECTION, NORMOCEPHALIC Discharge Plan - Follow Up Plan Condition: IMPROVED Disposition: AGAINST MEDICAL ADVICE Instructions: Constipation (DC), Constipation (GEN) Additional Instructions: Patient left Against Medical Advice
[2017-07-26] MEDS ORDERED: Influenza Vaccine 60 mcg/0.5 mL SYR (4YR UP) IM ONE (10:00)
[2017-07-26] MEDS ORDERED: Pneumococcal 23-Valent Vaccine IM ONE (10:00)
== END 2017-07-25 12:00 | disposition left against medical advice (07) | DRG 449 ==
LOC: C.ER 18:00 → C.9E 21:44 → C.9I 23:06
PROVIDERS: ADMIT Internal Medicine; ATTEND Internal Medicine
DX: T42.3X2A Poisoning by barbiturates, intentional self-harm, initial encounter (principal); F11.10 Opioid abuse, uncomplicated; F31.9 Bipolar disorder, unspecified; E10.65 Type 1 diabetes mellitus with hyperglycemia; F10.99 Alcohol use, unspecified with unspecified alcohol-induced disorder; F12.90 Cannabis use, unspecified, uncomplicated; I10 Essential (primary) hypertension; F41.9 Anxiety disorder, unspecified; G40.909 Epilepsy, unspecified, not intractable, without status epilepticus; F17.210 Nicotine dependence, cigarettes, uncomplicated; Z79.4 Long term (current) use of insulin; Z79.899 Other long term (current) drug therapy

== ENCOUNTER 2018-03-18 17:32 | Emergency (ER) | payer MEDICAID ==
[2018-03-18 17:54] VITALS: BP 162/138; PULSE 111; RESP 18; TEMP 99; O2SAT 100
[2018-03-18] MEDS ORDERED: Sodium Chloride 0.9% 1,000 ML IV ONE (19:13)
[2018-03-18 19:42] LABS: BASO # 0.1 K/uL (0.0-0.2); BASO % 0.3 % (0.0-2.0); EOS # 0.2 K/uL (0.0-0.7); EOS % 0.9 % (0.0-4.0); LYMPH # 2.1 K/uL (1.0-4.3); LYMPH % 9.5 % (20.0-40.0); MEAN CORPUSCULAR HEMOGLOBIN 32.1 pg (27.0-31.0); MEAN CORPUSCULAR HGB CONC 34.5 g/dL (33.0-37.0); MEAN PLATELET VOLUME 9.9 fL (7.2-11.7); MONO # 0.9 K/uL (0.0-0.8); MONO % 4.1 % (0.0-10.0); NEUT # 18.7 K/uL (1.8-7.0); NEUT % 85.2 % (50.0-75.0); PLATELET COUNT 242 K/uL (130-400); RBC 5.01 Mil/uL (3.80-5.20); RED CELL DISTRIBUTION WIDTH 12.9 % (11.5-14.5)
[2018-03-18 19:44] LABS: HEMOGLOBIN 16.1 g/dL (11.0-16.0); WHITE BLOOD COUNT 21.9 K/uL (4.8-10.8)
--- NOTE | 2018-03-18 19:44 | C.PDOC ---
History Of Present Illness 48 y/o female presents to the ED complaining of right foot pain after surgery 2 weeks ago. Also reports having some chills, but no documented fever. Patient is afebrile on arrival. Also has history of diabetes, states she is complaint with her medication regimen. Otherwise patient denies any numbness, tingling, focal weakness, SOB, nausea, or vomiting. Time Seen by Provider: 03/18/18 19:12 Chief Complaint (Nursing): Lower Extremity Problem/Injury History Per: Patient History/Exam Limitations: no limitations Onset/Duration Of Symptoms: Days Current Symptoms Are (Timing): Still Present Past Medical History Reviewed: Historical Data, Nursing Documentation, Vital Signs Vital Signs: Last Vital Signs Temp 99 F 03/18/18 17:48 Pulse 111 H 03/18/18 17:48 Resp 18 03/18/18 17:48 BP 162/138 H 03/18/18 17:48 Pulse Ox 100 03/18/18 17:48 - Medical History PMH: Bipolar Disorder, Depression, Diabetes, HTN, Hypercholesterolemia, Seizures Denies: Hepatitis, HIV, Chronic Kidney Disease, Sexually Transmitted Disease Other Surgeries: Right foot surgery - [facility] Procedures GROUP PSYCHOTHERAPY (08/22/17) INDIV PSYCHOTHERAPY FOR SUBSTANCE ABUSE, COGNITIV BEHAVIORAL (08/22/17) INDIVIDUAL PSYCHOTHERAPY, COGNITIVE-BEHAVIORAL (08/22/17) Family History: States: Unknown Family Hx - Social History Hx Tobacco Use: Yes Hx Alcohol Use: No Hx Substance Use: Yes (mj daily, used cocaine in past) - Immunization History Hx Tetanus Toxoid Vaccination: No Hx Influenza Vaccination: No Hx Pneumococcal Vaccination: No Review Of Systems Constitutional: Positive for: Chills. Negative for: Fever Respiratory: Negative for: Shortness of Breath Gastrointestinal: Negative for: Nausea, Vomiting Musculoskeletal: Positive for: Foot Pain Neurological: Negative for: Weakness, Numbness, Incoordination Physical Exam - Physical Exam Appears: Non-toxic, No Acute Distress Skin: Warm, Dry Head: Normacephalic Eye(s): bilateral: Normal Inspection Oral Mucosa: Moist Neck: Trachea Midline, Supple Chest: Symmetrical Cardiovascular: Rhythm Regular Respiratory: No Rales, No Rhonchi, No Wheezing Extremity: Normal ROM, Capillary Refill (less than 2 sec), Other (medial aspect of right foot w/ 5x2 cm well-healing ulcer, as well as 1 x 2.5 cm healing ulcer to dorsum of right foot; No foul smell or exudates) Pulses: Left Dorsalis Pedis: Normal, Right Dorsalis Pedis: Normal Neurological/Psych: Oriented x3, Normal Speech ED Course And Treatment - Laboratory Results Result Diagrams: 03/18/18 19:38 03/18/18 19:38 O2 Sat by Pulse Oximetry: 100 (RA) Pulse Ox Interpretation: Normal Progress Note: Blood work and urine sent, along with blood cultures. Administered IV fluids. went to re-examine the pt , but pt had eloped Disposition Counseled Patient/Family Regarding: Studies Performed, Diagnosis - Disposition Disposition: ELOPEMENT - ER ONLY Disposition Time: 22:08 Condition: FAIR Forms: [facility] (Welsh) - Clinical Impression Clinical Impression: Foot ulcer due to secondary DM, Foot pain, right, Abscess or cellulitis of foot - Scribe Statement The provider has reviewed the documentation as recorded by the Scribe (Marisa Mariee) Provider Attestation: All medical record entries made by the Scribe were at my direction and personally dictated by me. I have reviewed the chart and agree that the record accurately reflects my personal performance of the history, physical exam, medical decision making, and the department course for this patient. I have also personally directed, reviewed, and agree with the discharge instructions and disposition.
[2018-03-18 19:47] LABS: SQUAMOUS EPITHIAL 3 /hpf (0-5); URINE BACTERIA RARE (<OCC); URINE BILIRUBIN NEGATIVE (NEGATIVE); URINE BLOOD 1+ (NEGATIVE); URINE CLARITY Hazy (Clear); URINE COLOR Yellow (YELLOW); URINE GLUCOSE (UA) 3+ mg/dL (Normal); URINE LEUKOCYTE ESTERASE NEG Leu/uL (Negative); URINE PROTEIN 3+ mg/dL (NEGATIVE); URINE UROBILINOGEN NORMAL mg/dL (0.2-1.0)
[2018-03-18 19:50] LABS: HCG,QUALITATIVE URINE NEGATIVE (NEGATIVE)
[2018-03-18 19:51] LABS: PROTHROMBIN TIME 11.3 SECONDS (9.7-12.2)
[2018-03-18 19:55] LABS: ALBUMIN 4.2 g/dL (3.5-5.0); BLOOD UREA NITROGEN 19 mg/dL (7-17); CALCIUM 9.5 mg/dl (8.6-10.4); GFR NON-AFRICAN AMERICAN > 60; LIPASE 198 U/L (23-300)
[2018-03-18 19:56] LABS: VENOUS BLOOD GAS BASE EXCESS 4.7 mmol/L (0.0-2.0); VENOUS BLOOD GAS PCO2 58 mmHg (40-60); VENOUS BLOOD GAS PO2 21 mm/Hg (30-55); VENOUS BLOOD PH 7.35 (7.32-7.43)
[2018-03-18 20:02] LABS: ALT/SGPT 13 U/L (9-52); AST/SGOT 25 U/L (14-36)
[2018-03-18 20:09] LABS: LYMPHOCYTE 12 % (20-40); MONOCYTE 3 % (0-10); NEUTROPHIL 85 % (50-75); PLATELET ESTIMATE NORMAL (NORMAL); TOTAL CELLS COUNTED 100
[2018-03-18 20:10] LABS: LARGE PLATELETS PRESENT
== END 2018-03-18 22:10 | disposition left against medical advice (07) ==
LOC: C.ER 17:32
DX: E11.622 Type 2 diabetes mellitus with other skin ulcer (principal); L97.919 Non-pressure chronic ulcer of unspecified part of right lower leg with unspecified severity; L02.611 Cutaneous abscess of right foot; L03.115 Cellulitis of right lower limb; M79.671 Pain in right foot
CPT/HCPCS: 80053; 81001; 82803; 82948; 83690; 84703; 85025; 85610; 85730; 87040; 96361; 96374; 99283; J2405; J7030

== ENCOUNTER 2018-03-19 00:04 | Emergency (ER) | payer MEDICAID ==
--- NOTE | 2018-03-19 00:15 | C.PDOC ---
History Of Present Illness Patient was seen here earlier in the shift for foot pain, but pt had eloped. patient now returns with abdominal pain and hematemesis. No fever, chills, Sharp stabbing abdominal pain. Patient now states that she has nauseated and not tolerating po over the last 2-3 days. She has not been taking her suboxone. Patient has had about 50-75 cc of bright red blood in the emesis basin Time Seen by Provider: 03/19/18 00:14 Chief Complaint (Nursing): Abdominal Pain History Per: Patient History/Exam Limitations: no limitations Onset/Duration Of Symptoms: Hrs Current Symptoms Are (Timing): Still Present Context: Other Severity: Severe Pain Scale Rating Of: 6 Location Of Pain/Discomfort: Epigastric Radiation Of Pain To:: None Quality Of Discomfort: Sharp, Cramping Associated Symptoms: Nausea, Vomiting. denies: Fever, Chills Exacerbating Factors: None Alleviating Factors: None Last Bowel Movement: Today Recent travel outside of the [place]: No Additional History Per: Patient Abnormal Vaginal Bleeding: No Past Medical History Reviewed: Historical Data, Nursing Documentation, Vital Signs - Medical History PMH: Bipolar Disorder, Depression, Diabetes, HTN, Hypercholesterolemia, Seizures Denies: Hepatitis, HIV, Chronic Kidney Disease, Sexually Transmitted Disease - [facility] Procedures GROUP PSYCHOTHERAPY (08/22/17) INDIV PSYCHOTHERAPY FOR SUBSTANCE ABUSE, COGNITIV BEHAVIORAL (08/22/17) INDIVIDUAL PSYCHOTHERAPY, COGNITIVE-BEHAVIORAL (08/22/17) Family History: States: No Known Family Hx - Social History Hx Tobacco Use: Yes Hx Alcohol Use: No Hx Substance Use: Yes (mj daily, used cocaine in past) - Immunization History Hx Tetanus Toxoid Vaccination: No Hx Influenza Vaccination: No Hx Pneumococcal Vaccination: No Review Of Systems Constitutional: Negative for: Fever, Chills Eyes: Negative for: Redness ENT: Negative for: Throat Pain Cardiovascular: Negative for: Chest Pain Respiratory: Negative for: Shortness of Breath Gastrointestinal: Positive for: Nausea, Vomiting, Abdominal Pain Genitourinary: Negative for: Dysuria Musculoskeletal: Negative for: Back Pain Skin: Positive for: Other (healing right foot ulcer). Negative for: Rash Neurological: Negative for: Weakness Psych: Positive for: Anxiety Physical Exam - Physical Exam Appears: In Acute Distress Skin: Warm, Dry Head: Normacephalic Eye(s): bilateral: Normal Inspection Oral Mucosa: Dry Neck: Supple Chest: Symmetrical Cardiovascular: Rhythm Regular Respiratory: No Rales, Rhonchi, No Wheezing Gastrointestinal/Abdominal: Soft, Tenderness, No Distention, Other (obese) Back: No CVA Tenderness Extremity: Other (healing r medial aspect ulcer) Extremity: Bilateral: No Pedal Edema Pulses: Left Dorsalis Pedis: Normal, Right Dorsalis Pedis: Normal Neurological/Psych: Oriented x3 Gait: Steady ED Course And Treatment O2 Sat by Pulse Oximetry: 100 Pulse Ox Interpretation: Normal Disposition Counseled Patient/Family Regarding: Studies Performed, Diagnosis - Disposition Disposition: ELOPEMENT - ER ONLY Disposition Time: 00:15 Condition: FAIR Forms: [facility] (Yi) - Clinical Impression Clinical Impression: Abdominal pain, Nausea, Vomiting, UGI bleed
[2018-03-19 00:18] VITALS: BMI 30.2
[2018-03-19 00:21] VITALS: BP 236/112; PULSE 128; RESP 29; O2SAT 100
[2018-03-19] MEDS ORDERED: Pantoprazole 80 MG in Sodium Chloride 0.9% 100 ML IV STA (00:26)
[2018-03-19] MEDS ORDERED: Morphine 4 MG/ML VIAL IV ONE (00:26)
[2018-03-19] MEDS ORDERED: Sodium Chloride 0.9% 1,000 ML IV ONE (00:26)
== END 2018-03-19 00:30 | disposition left against medical advice (07) ==
LOC: C.ER 00:04
DX: K92.2 Gastrointestinal hemorrhage, unspecified (principal); R10.9 Unspecified abdominal pain; R11.2 Nausea with vomiting, unspecified